=== PATIENT | male | born 1950 | race Hispanic/Latino ===

== ENCOUNTER 2019-11-15 08:57 | Inpatient (IN) | payer MEDICARE, OTHER ==
[~2019-11-15] VITALS: Ht 180.3 cm; Wt 99.8 kg
[2019-11-15] MEDS ORDERED: SODIUM CHLORIDE 0.9% 1000ML 1,000 ML IV STA (09:10)
--- NOTE | 2019-11-15 09:11 | NUR ---
sent to restroom for urine sample. pt heard vomiting in restroom.
--- OUTSIDE RECORDS SUMMARY | 2019-11-15 09:37 | XMS REPORT | Continuity of Care Document ---
Author Author [facility] Organization [facility] Address [facility] Benito Ramos [address] [place] [address] Phone Unavailable Care Team Providers Care Cashier Clerk Name Role Phone ESTEPHANIA CHAVEZ M.D. Attphys Unavailable Jose Chavez Attphys Binh Morejon M.D. Attphys Unavailable NEHEMIAS MOTA, STYLE ADVISOR Attphys Unavailable NEHEMIAS MOTA IV RN Attphys Unavailable Gonzalo Segundo Attphys Problems Condition Name Condition Details Condition Category Status Onset Date Resolution Date Last Treatment Date Treating Clinician Comments Source I10 - ESSENTIAL (PRIMARY) HYPERTENSI I25 I10 - ESSENTIAL (PRIMARY) HYPERTENSI I25 Active 03/18/2019 Steven Oliver Diagnosis Active 2019-03-18 00:01:00 2019-03-24 07:47:00 izabel Oliver Z12.11 Z12. 11 Active 02/29/[address] [facility] Diagnosis Active 2016-02-29 00:00:00 2016-04-07 06:22:00 Steven Oliver History of Muscle spasm History of Muscle spasm Problem Resolved [facility] History of polycythemia History of polycythemia Problem Resolved [facility] Hearing loss Hearing loss Problem Active [facility] Vertigo Vertigo Problem Active [facility] Elevated WBCs Elevated WBCs Problem Active [facility] Benign paroxysmal positional vertigo Benign paroxysmal posit ional vertigo Problem Active [facility] Gastroenteritis Gastroenteritis Problem Active [facility] Chronic otitis externa Chronic otitis externa Problem Active [facility] Acute bronchitis Acute bronchitis Problem Active [facility] Need for hepatitis C screening test Need for hepatitis C screeni ng test Problem Active [facility] Colon cancer screening Colon cancer screening Problem Active [facility] Influenza vaccine needed Influenza vaccine needed Problem Active [facility] Contact dermatitis Contact dermatitis Problem Active [facility] Increased urinary frequency Increased urinary frequency Problem Active [facility] Decreased renal function Decreased renal function Problem Active [facility] Encounter for Medicare annual wellness exam Encounter for Medicare annual wellness exam Problem Active [facility] Advance directive discussed with patient Advance direc tive discussed with patient Problem Active [facility] Allergic rhinitis Allergic rhinitis Problem Active [facility] BMI 31.0-31.9,adult BMI 31.0-31.9,adult Problem Active [facility] Colon polyps Colon polyps Problem Active [facility] Gastroesophageal reflux disease Gastroesophageal reflux disease Pro blem Active [facility] Generalized anxiety disorder Generalized anxiety disorder Problem Active [facility] Hypercholesterolemia Hypercholesterolemia Problem Active [facility] Osteoarthritis Osteoarthritis Problem Active [facility] Iliac artery stenosis, left Iliac artery stenosis, left Problem Active [facility] Hypertension Hypertension Problem Active [facility] CAD (coronary artery disease) CAD (coronary artery disease) Problem Active [facility] Polycythemia Polycythemia Problem Active [facility] S/P CABG x 3 S/P CABG x 3 Problem Active [facility] Anxiety (finding) Anxi ety (finding) Resolved Problem 03/27/2019 [facility] KAREN Trejo Problem Resolved 2019-03-27 00:03:00 Steven Oliver Gastroesophageal reflux disease (disorder) Gastroesophageal reflux disease (disorder) Resolved Problem 03/27/2019 [facility] KAREN Trejo Problem Resolved 2019-03-27 00:03:0 0 Steven Oliver Hypertensive disorder, systemic arterial (disorder) Hypertensive disorder, systemic arterial (disorder) Resolved Problem 03/27/2019 [facility] KAREN Trejo Problem Resolved 2019-03-27 00 :03:00 Steven Oliver Allergies, Adverse Reactions, Alerts Allergy Name Allergy Type Status Severity Reaction(s) Onset Date Inacti ve Date Treating Clinician Comments Source No Known Drug Allergies No Known Drug Allergies Active Steven Oliver No Known Medication Allergies No Known Medication Allergies Active Steven Oliver Family History Family Member Diagnosis Comments Start Date Stop Date Source Mother Family history of systemic lupus erythematosus [facility] Father Family history of renal failure [facility] Social History Social Habit Start Date Stop Date Quantity Comments Source Social History 2013-03-19 22:04:19 2013-03-19 22:04:19 Steven Oliver Smoking Status Start Date Stop Date Source Smokes tobacco daily (finding) [facility] Social History 2016-04-07 12:52:33 2016-04-07 12:52:33 Steven Oliver Medications Ordered Medication Name Filled Medication Name Start Date Stop Da te Current Medication? Ordering Clinician Indication Dosage Frequency Signature (SIG) Comments Components Source Loratadine 10 MG Oral Tablet Loratadine 10 MG Oral Tablet 2019-08-11 00:00:00 Yes ESTEPHANIA CHAVEZ M.D. TAKE 1 TABLET BY MOUTH ONCE D AILY, FOR [address] [facility] Losartan Potassium 50 MG Oral Tablet Losartan Potassium 50 M G Oral Tablet 2019-03-07 00:00:00 Yes ESTEPHANIA CHAVEZ M.D. 1 Q D TAKE 1 TABLET BY MOUTH EVERY DAY [facility] hydroCHLOROthiazide 12.5 MG Oral Tablet hydroCHLOROthiazide 12.5 MG Oral Tablet 2019-03-07 00:00:00 Yes ESTEPHANIA CHAVEZ M.D. 1 QD TAKE [address] [facility] Clopidogrel Bisulfate 75 MG Oral Tablet Clopidogrel Bisulfat e 75 MG Oral Tablet 2018-06-24 00:00:00 Yes ESTEPHANIA CHAVEZ M.D. 1 Q D TAKE 1 TABLET BY MOUTH EVERY DAY [facility] Atorvastatin Calcium 40 MG Oral Tablet Atorvastatin Calcium 40 MG Oral Tablet 2018-03-15 00:00:00 Yes ESTEPHANIA CHAVEZ M.D. TAKE 1 TABLET BY MOUTH AT BEDTIME [facility] Metoprolol Tartrate 50 MG Oral Tablet Metoprolol Tartrate 50 MG Oral Tablet 2017-12-27 00:00:00 Yes ESTEPHANIA CHAVEZ M.D. Q 0.5D TAKE 1 TABLET BY MOUTH TWICE DAILY [facility] Omeprazole 40 MG Oral Capsule Delayed Release Omeprazo le 40 MG Oral Capsule Delayed Release 2017-05-31 00:00:00 Yes ESTEPHANIA CHAVEZ M.D. TAKE 1 CAPSULE BY MOUTH EVERY DAY [facility] Sodium Chloride 0.154 MEQ/ML Injectable Solution 2016-04-07 12:5 5:00 No 1,000 mL, Rate: 25 ml/hr, In fuse over: 40 hr, Route: IV, Dosing Weight 92.727 kg, Total Volume: 1,000, Start date: 04/07/16 6:55:00 MAINFRAME PROGRAMMER, Duration: 1 day, Stop date: 04/08/16 6:54:00 MAINFRAME PROGRAMMER [facility] val[facility] 160 mg oral tablet 2016-04-06 17:30:00 Yes 160 mg = 1 tab, PO, Daily, 0 Refill(s) Steven Benito metoprolol tartrate 50 mg oral tablet 2016-04-06 17:30:00 Y es 50 mg = 1 tab, PO, BID, 0 Refill(s) Steven lorenz pantoprazole 40 mg oral enteric coated tablet 2016-04-06 17:30:0 0 Yes 40 mg = 1 tab, PO, Daily, 0 Refill(s) Steven Oliver clopidogrel 75 MG Oral Tablet [Plavix] 2016-04-06 17:30:00 Yes 75 mg = 1 tab, PO, Daily, 0 Refill(s) Terrell Oliver atorvastatin 80 mg oral tablet 2016-04-06 17:30:00 Yes 80 mg = 1 tab, PO, Daily, 0 Refill(s) Steven thomas Aspirin 2016-04-06 17:29:00 Yes 0 Refill(s) Steven Oliver No Reported Medications 2013-03-19 22:04:19 Yes (Active) Steven Oliver Aspirin 81 MG TABS Aspirin 81 MG TABS Yes 1 QD TA KE 1 TABLET DAILY. [facility] Tylenol CAPS Tylenol CAPS Yes USE NEEDED [facility] Immunizations Ordered Immunization Name Filled Immunization Name Date Status Comments Source Fluzone High-Dose 0.5 ML Intramuscular Suspension Prefilled Syringe 2019-03-07 11:14:00 Completed [facility] Fluzone Quadrivalent 0.5 ML Intramuscular Suspension Prefill ed Syringe 2017-12-27 14:30:00 Completed [facility] Fluzone High-Dose 0.5 ML Intramuscular Suspension Prefilled Syringe 2017-02-15 14:47:00 Completed [facility] Pneumovax 23 25 MCG/0.5ML Injection Injectable 2017-02 14:47:00 Completed [facility] Prevnar 13 Intramuscular Suspension 2016-02-15 09:25:00 Co mpleted [facility] Fluzone INJ 2016-01-24 16:30:00 Completed [facility] Tdap 2012-08-01 00:00:00 Completed [facility] Vital Signs Vital Name Observation Time Observation Value Comments Source Systolic blood pressure 2019-06-02 11:54:00 121 mm[Hg] [facility] Diastolic blood pressure 2019-06-02 11:54:00 78 mm[Hg] [facility] Weight 2019-06-02 11:54:00 219 [lb_av] [facility] Body mass index (BMI) [Ratio] 2019-06-02 11:54:00 30.54 kg/m2 [facility] Heart Rate 2019-06-02 11:54:00 70 /min [facility] BP Systolic 2019-03-07 10:21:00 137 mm[Hg] Location: [place]; [place] on: Sitting [facility] BP Diastolic 2019-03-07 10:21:00 79 mm[Hg] Location: [place]; [place] on: Sitting [facility] Heart Rate 2019-03-07 10:21:00 72 /min [facility] BP Systolic 2019-03-07 10:15:00 153 mm[Hg] Location: [place]; [place] on: Sitting [facility] BP Diastolic 2019-03-07 10:15:00 78 mm[Hg] Location: [place]; [place] on: Sitting [facility] Heart Rate 2019-03-07 10:15:00 73 /min [facility] Height 2019-03-07 10:15:00 71 [in_us] [facility] Weight 2019-03-07 10:15:00 225 [lb_av] [facility] Body Mass Index Calculated 2019-03-07 10:15:00 31.38 kg/m2 [facility] Temperature 2019-03-07 10:15:00 98.3 [degF] Method: Oral [facility] Respiration Rate 2019-03-07 10:15:00 16 /min [facility] BP Systolic 2018-10-16 14:34:00 133 mm[Hg] Location: [place]; [place] on: Sitting [facility] BP Diastolic 2018-10-16 14:34:00 79 mm[Hg] Location: [place]; [place] on: Sitting [facility] Height 2018-10-16 14:34:00 71 [in_us] [facility] Weight 2018-10-16 14:34:00 223 [lb_av] [facility] Body Mass Index Calculated 2018-10-16 14:34:00 31.1 kg/m2 [facility] Temperature 2018-10-16 14:34:00 97.5 [degF] Method: Oral [facility] Heart Rate 2018-10-16 14:34:00 76 /min [facility] Respiration Rate 2018-10-16 14:34:00 16 /min [facility] Respitory Rate 2016-04-07 14:15:00 [facility] [place] Systolic (mm Hg) 2016-04-07 14:15:00 Maximino rial [place] Diastolic (mm Hg) 2016-04-07 14:15:00 Mem orial [place] Systolic (mm Hg) 2016-04-07 14:00:00 Maximino rial [place] Diastolic (mm Hg) 2016-04-07 14:00:00 [facility] [place] Respitory Rate 2016-04-07 14:00:00 [facility] [place] Systolic (mm Hg) 2016-04-07 13:47:00 Maximino rial [place] Diastolic (mm Hg) 2016-04-07 13:47:00 [facility] [place] Respitory Rate 2016-04-07 13:47:00 [facility] Height 2016-04-06 17:25:00 180.34 cm [facility] BMI Calculated 2016-04-06 17:25:00 [facility] [place] Weight 2016-04-06 17:25:00 [facility] Procedures Procedure Date / Time Performed Performing Clinician Sour e [QL] CBC (INCLUDES DIFF/PLT) 2019-03-07 00:00:00 [facility] [[facility]] CMP W/EGFR 2019-03-07 00:00:00 [facility] [[facility]] HEMOGLOBIN A1c 2019-03-07 00:00:00 [facility] [[facility]] LIPID PANEL 2019-03-07 00:00:00 [facility] [[facility]] TSH, 3RD GENERATION 2019-03-07 00:00:00 [facility] Abdomen Aortic Aneurysm (AAA) [id number] 2019-03-07 00:00:00 [facility] History of Coronary Artery Triple Bypass Graft [facility] CABG - Coronary artery bypass graft [facility] [place] Encounters Start Date/Time End Date/Time Encounter Type Admission Type Attendi [facility] Care Department Encounter ID Source 2019-06-02 11:30:00 2019-06-02 11:30:00 Appointment; ESTEPHANIA CHAVEZ M.D. WALTON, HAROLD, M.D. [facility] [id number] [facility] 2019-03-24 07:36:00 2019-03-24 23:59:00 Outpatient Caio Chavez MHOIB MHOIB [id number] 2019-03-07 10:30:00 2019-03-07 10:30:00 Appointment; ESTEPHANIA CHAVEZ M.D. WALTON, HAROLD, M.D. [facility] [id number] [facility] 2018-10-16 14:15:00 2018-10-16 14:15:00 Appointment; ESTEPHANIA CHAVEZ M.D. WALTON, HAROLD, M.D. [facility] [id number] [facility] 2018-05-16 13:45:00 2018-05-16 13:45:00 Appointment; ESTEPHANIA CHAVEZ M.D. WALTON, HAROLD, M.D. [facility] [id number] [facility] 2018-03-29 11:45:00 2018-03-29 11:45:00 Appointment; Binh Morejon M.D. Quesada, Jorge, M.D. [facility] [id number] [facility] 2018-02-27 10:00:00 2018-02-27 10:00:00 Appointment; KIAN MOTA APRN HOANG, CHRISTINA, APRN [facility] [id number] [facility] 2018-02-27 10:00:00 2018-02-27 10:00:00 Appointment; KIAN MOTA APRN HOANG, CHRISTINA, APRN [facility] [id number] [facility] 2018-01-29 10:30:00 2018-01-29 10:30:00 Appointment; ESTEPHANIA CHAVEZ M.D. WALTON, HAROLD, M.D. [facility] [id number] [facility] 2017-12-27 13:30:00 2017-12-27 13:30:00 Appointment; ESTEPHANIA CHAVEZ M.D. WALTON, HAROLD, M.D. [facility] [id number] [facility] 2017-10-02 10:30:00 2017-10-02 10:30:00 Appointment; ESTEPHANIA CHAVEZ M.D. WALTON, HAROLD, M.D. [facility] UTP [id number] [facility] 2017-05-31 11:30:00 2017-05-31 11:30:00 Appointment; ESTEPHANIA CHAVEZ M.D. WALTON, HAROLD, M.D. [facility] UTP [id number] [facility] 2017-05-31 10:45:00 2017-05-31 10:45:00 Appointment; ESTEPHANIA CHAVEZ M.D. WALTON, HAROLD, M.D. [facility] UTP [id number] [facility] 2017-03-01 11:15:00 2017-03-01 11:15:00 Appointment; ESTEPHANIA CHAVEZ M.D. WALTON, HAROLD, M.D. [facility] UTP [id number] [facility] 2017-02-15 13:00:00 2017-02-15 13:00:00 Appointment; KIAN MOTA NP HOANG, CHRISTINA, NP [facility] UTP [id number] [facility] 2016-04-07 06:15:00 2016-04-07 08:32:00 Outpatient Uriel Segundo [place] [id number] 2013-03-19 16:04:19 2013-03-19 16:04:19 Outpatient [place] IE [id number] Results Test Description Test Time Test Comments Results Result Comments Source US Aorta [id number] 2019-03-24 08:00:00 EXAM: US AOR TADATE: 03/24/2019 8:02 CSTINDICATION: - i10 hypertension, i25.10 CAD. History of cardiac bypass. 40 yearhistory of smoking with smoking cessation 5 years ago.ADDITIONAL INFORMATION: None.COMPARISON: None.TECHNIQUE: Multiplanar grayscale, color Doppler and spectral Doppler ultrasoundof the aorta.FINDINGS:Abdominal aorta: Normal arterial waveformsSuprarenal aorta: 2.5 x 2.1 cm.Juxtarenal aorta: 2.1 x 2.1 cm.Infrarenal aorta: 2.1 x 2.1 cm.Common iliac arteries:Right common iliac artery: 1.4 x 1.1 cm. Atherosclerotic plaque.Left common iliac artery: 1.3 x 1.1 cm. Monophasic waveforms with elevated peaksystolic velocity of 400 cm/s are seen in the proximal left common iliac arterywith atherosclerotic plaque present.Inferior vena cava: Normal.Retroperitoneal/periaortic region: Normal.IMPRESSION:1. No abdominal aortic aneurysm is detected.2. Suspected hemodynamically significant stenosis of greater than 50% in theproximal left common iliac artery as manifested by elevated peak systolicvelocity and monophasic waveforms. CTA of the pelvis with bilateral lowerextremity runoffs is recommended for further evaluation and characterization.--Read by: Robb Walsh MDDictated Date/time: 03/24/19 08:52Electronically Signed by: Robb Walsh MD 03/24/2007:55FINAL REPORT [facility] [[facility]] LIPID PANEL 2019-03-08 08:06:00 Test Item CHOLESTEROL, TOTAL; Normal (test code = 2093-3) 111 mg/dl <200 N HDL CHOLESTEROL; Below Low Threshold (test code = 2085-9) 37 mg/dl >40 TRIGLYCERIDES; Normal (test code = 2571-8) 149 mg/dl <150 N LDL-CHOLESTEROL; Normal (test code = 79456-3) 51 {MG/DL GREGG} N Reference range: <100 Desirable range <100 mg/dL for primary prevention; <70 mg/dL for patients with CHD or diabetic patients with > or = 2 CHD risk factors. LDL-C is now calculated using the Avila-Kj calculation, which is a validated novel method providing better accuracy than the Friedewald equation in the estimation of LDL-C. Avila SS et al. DIANELYS. 2013;310(19): 4313-5514 (http ://education.[employer].Datactics/faq/CBT058) CHOL/HDLC RATIO (test code = CHOL/HDLC RATIO) 3.0 {CALC} <5.0 N NON HDL CHOLESTEROL (test code = NON HDL CHOLESTEROL) 74 {MG/DL CA L} <130 N For patients with diabetes plus 1 major ASCVD risk factor, treating to a non-HDL-C goal of <100 mg/dL (LDL-C of <70 mg/dL) is considered a therapeutic option. [facility]] CMP [id number] 08:06:00* Test Item Value Reference Range Interpretation Comments GLUCOSE; Normal (test code = 1547-9) 98 mg/dl 65-99 N Fasting reference interval UREA NITROGEN (BUN) (test code = UREA NITROGEN (BUN)) 21 mg/dl 7-25 N CREATININE (test code = CREATININE) 1.25 mg/dl 0.70-1.25 N For patients >49 years of age, the reference limitfor Creatinine is approximately 13% higher for peopleidentified as -[place]. eGFR NON- (test code = eGFR NON-JASMIN N MARSHALLESE) 59 {ML/MIN/1.7} > OR = 60 eGFR (test code = eGFR ) 68 {ML/MIN/1.7} > OR = 60 N BUN/CREATININE RATIO (test code = BUN/CREATININE RATIO) NOT APPLICA BLE 6-22 SODIUM (test code = SODIUM) 141 mmol/L 135-146 N POTASSIUM (test code = POTASSIUM) 4.4 mmol/L 3.5-5.3 N CHLORIDE (test code = CHLORIDE) 104 mmol/L 98-110 N CARBON DIOXIDE (test code = CARBON DIOXIDE) 27 mmol/L 20-32 N CALCIUM (test code = CALCIUM) 9.9 mg/dl 8.6-10.3 N PROTEIN, TOTAL (test code = PROTEIN, TOTAL) 7.2 g/dl 6.1-8.1 N ALBUMIN (test code = ALBUMIN) 4.2 g/dl 3.6-5.1 N GLOBULIN (test code = GLOBULIN) 3.0 {G/DL CALC} 1.9-3.7 N ALBUMIN/GLOBULIN RATIO (test code = ALBUMIN/GLOBULIN RATIO) 1.4 {CALC} 1.0-2.5 N BILIRUBIN, TOTAL; Normal (test code = 13324-2) 1.2 mg/dl 0.2-1.2 N ALKALINE PHSPHATASE (test code = ALKALINE PHSPHATASE) 58 u/l 40-115 N AST; Normal (test code = 1916-6) 12 u/l 10-35 N ALT; Normal (test code = 1742-6) 15 u/l 9-46 N [facility]] CBC (INCLUDES DIFF/PLT)2019-03-08 08:06:00* Test Item Value Reference Range Interpretation Comments WHITE BLOOD CELL COUNT (test code = WHITE BLOOD CELL COUNT) 8.6 {Thousand/u} 3.8-10.8 N RED BLOOD CELL COUNT (test code = RED BLOOD CELL COUNT) 5.65 {Million/uL} 4.20-5.80 N HEMAGLOBIN; Above High Threshold (test code = 83091-6) 18.4 g/dl 13.2-17.1 HEMATOCRIT; Above High Threshold (test code = 4544-3) 51.8 % 38.5-50.0 MCV; Normal (test code = 787-2) 91.7 fL 80.0-100.0 N MCHC; Normal (test code = 45391-8) 35.5 g/dl 32.0-36.0 N RDW; Normal (test code = 788-0) 12.1 % 11.0-15.0 N PLATELET COUNT; Normal (test code = 777-3) 175 {Thousand/u} 140-400 N MPV; Normal (test code = 71192-9) 11.2 fL 7.5-12.5 N ABSOLUTE NEUTROPHILS (test code = ABSOLUTE NEUTROPHILS) 6330 {cells/uL} 1061-1994 N ABSOLUTE LYMPHOCYTES (test code = ABSOLUTE LYMPHOCYTES) 1350 {cells/uL} 850-3900 N ABSOLUTE MONOCYTES (test code = ABSOLUTE MONOCYTES) 679 {cells/uL} 200-950 N ABSOLUTE EOSINOPHILS (test code = ABSOLUTE EOSINOPHILS) 198 {cells/ uL} 15-500 N ABSOLUTE BASOPHILS (test code = ABSOLUTE BASOPHILS) 43 {cells/uL} 0 -200 N NEUTROPHILS (test code = NEUTROPHILS) 73.6 % N LYMPHOCYTES (test code = LYMPHOCYTES) 15.7 % N MONOCYTES; Normal (test code = 04543-5) 7.9 % N EOSINOPHILS; Normal (test code = 78566-4) 2.3 % N BASOPHILS; Normal (test code = 83329-6) 0.5 % N [facility]] TSH, 3RD [id number] 08:06:00* Test Item Value Reference Range Interpretation Comments TSH; Normal (test code = 04703-8) 0.84 {MIU/L} 0.40-4.[address] [facility]] HEMOGLOBIN [id number] 08:06:00* Test Item Value Reference Range Interpretation Comments HEMOGLOBIN A1c; Normal (test code = 4548-4) 5.6 {% of total} <5.7 N For the purpose of screening for the presence ofdiabetes: <5.7% Consistent with the absence of diabetes5.7-6.4% Consistent with increased risk for diabetes (prediabetes)> or =6.5% Consistent with diabetes This assay result is consistent with a decreased riskof diabetes. Currently, no consensus exists regarding use ofhemoglobin A1c for diagnosis of diabetes in children. According to [place] Diabetes Association (ADA)guidelines, hemoglobin A1c <7.0% represents optimalcontrol in non- diabetic patients. Differentmetrics may apply to specific patient populations. Standards of Medical Care in Diabetes(ADA). [facility]
--- OUTSIDE RECORDS SUMMARY | 2019-11-15 09:37 | XMS REPORT | Continuity of Care Document ---
Author Author ShipHawkKECIA Flanagan [employer] Address Unknown Phone Unavailable Care Team Providers Care Flare Man Name Role Phone [employer] Information Exchange Unavailable Un available Problems Problem Status Onset Date Classification Date Reported Comments Source I10 - ESSENTIAL (PRIMARY) HYPERTENSI I25 Active 03/18/2019 [facility] Z12.11 Active 02/29/2016 [facility] Anxiety (finding) Resolved Problem 03/27/2019 [facility], KAREN solorzano Gastroesophageal reflux disease (disorder) Resolved Problem 03/27/2019 [facility] CORAL Trejo Hypertensive disorder, systemic arterial (disorder) Resolved Problem 03/27/2019 [facility] KAREN Trejo Medications Medication Details Route Status Patient Instructions Ordering Provider Order Date Source Sodium Chloride 0.154 MEQ/ML Injectable Solution 1,000 mL, Rate: 25 ml/hr, Infuse over: 40 hr, Route: IV, Dosing Weight 92.727 kg, Total Volume: 1,000, Start date: 04/07/16 6:55:00 OUTSIDE MEDICAL SALES REPRESENTATIVE, Duration: 1 day, Stop date: 04/08/16 6:54:00 OUTSIDE MEDICAL SALES REPRESENTATIVE Inactive 04/07/2016 [facility] valsartan 160 mg oral tablet 1 60 mg = 1 tab, PO, Daily, 0 Refill(s) Active 04/06/2016 [facility] metoprolol tartrate 50 mg oral tablet 50 mg = 1 tab, PO, BID, 0 Refill(s) Active 04/06/2016 [facility] pantoprazole 40 mg oral enteric coated tablet 40 mg = 1 tab, PO, Daily, 0 Refill(s) Active 04/06/2016 [facility] clopidogrel 75 MG Oral Tablet [Plavix] 75 mg = 1 tab, PO, Daily, 0 Refill(s) Active 04/06/2016 [facility] atorvastatin 80 mg oral tablet 80 mg = 1 tab, PO, Daily, 0 Refill(s) Active 04/06/2016 [facility] Aspirin 0 Refill(s) Active 04/06/2016 [facility] No Reported Medications (Acti ve) Active [facility] Allergies, Adverse Reactions, Alerts Substance Category Reaction Severity Reaction type Status Date Reported Comments Source No Known Drug Allergies drug a llergy drug aller gy Active [facility] No Known Medication Allergies Assertion Drug aller gy OPID [place] Immunizations Immunization Date Given Site Status Last Updated Comments Source Tdap 08/01/2012 completed [facility] Results No Data Provided for This Section Pathology Reports No Data Provided for This Section Diagnostic Reports Report Value Date Source Aorta US EXAM: US AORTA DATE: 03/24/2019 8:02 OUTSIDE MEDICAL SALES REPRESENTATIVE INDICATION: - i10 hypertension, i25.10 CAD. History of cardiac bypass. 40 year history of smoking with smoking cessation 5 years ago. ADDITIONAL INFORMATION: None. COMPARISON: None. TECHNIQUE: Multiplanar grayscale, color Doppler and spectral Doppler ultrasound of the aorta. FINDINGS: Abdominal aorta: Normal arterial waveforms Suprarenal aorta: 2.5 x 2.1 cm. Juxtarenal aorta: 2.1 x 2.1 cm. Infrarenal aorta: 2.1 x 2.1 cm. Common iliac arteries: Right common iliac artery: 1.4 x 1.1 cm. Atherosclerotic plaque. Left common iliac artery: 1.3 x 1.1 cm. Monophasic waveforms with elevated peak systolic velocity of 400 cm/s are seen in the proximal left common iliac artery with atherosclerotic plaque present. Inferior vena cava: Normal. Retroperitoneal/periaortic region: Normal. IMPRESSION: 1. No abdominal aortic aneurysm is dete cted. 2. Suspected hemodynamically significan t stenosis of greater than 50% in the proximal left common iliac artery as manifested by elevated peak systolic velocity and monophasic waveforms. CTA of the pelvis with bilateral lower extremity runoffs is recommended for further evaluation and characterization. 03/24/2019 [facility] Consultation Notes No Data Provided for This Section Discharge Summaries No Data Provided for This Section History and Physicals No Data Provided for This Section Vital Signs Vital Sign Value Date Comments Source Respitory Rate 16 04/07/2016 [facility] Systolic (mm Hg) 154 04/07/2016 [facility] Diastolic (mm Hg) 83 04/07/2016 [facility] Systolic (mm Hg) 139 04/07/2016 [facility] Diastolic (mm Hg) 85 04/07/2016 [facility] Respitory Rate 16 04/07/2016 [facility] Systolic (mm Hg) 115 04/07/2016 [facility] Diastolic (mm Hg) 71 04/07/2016 [facility] Respitory Rate 16 04/07/2016 [facility] Height 180.34 cm 04/06/2016 [facility] BMI Calculated 28.51 04/06/2016 [facility] Weight 92.727 04/06/2016 [facility] Encounters Location Location Details Encounter Type Encounter Number Reason For Visit Attending Provider ADM Date DC Date Status Source AUDIT [id number] 03/19/2013 03/19/2013 [place] [facility] Bedded Outpatient [id number] Uriel Segundo 04/07/2016 04/07/2016 [facility] [place] [facility] Di[facility] Services [id number] 00 Jeremy Chavez 03/24/2019 03/25/2019 [facility] Procedures Procedure Code Date Perfomer Comments Source CABG - Coronary artery bypass graft [id number] [facility] Assessment and Plan No Data Provided for This Section Plan of Care No Data Provided for This Section Social History Social History Date Source Social History TypeResponse Smoking Status Former smoker; Concerns about tobacco use in household: No; Exposure to Tobacco Smoke None; Cigarette Smoking Last 365 Days No; Reg Smoking Cessation Counseling No entered on: 04/07/16 04/07/2016 [facility] Social History TypeResponse Smoking Status Former smoker; Concerns about tobacco use in household: No; Exposure to Tobacco Smoke None; Cigarette Smoking Last 365 Days No; Reg Smoking Cessation Counseling No 04/07/2016 [facility] Marital History - (V61.03); (Active) Current Smoker (305.1); (Active) No History of Alcohol Use (Denied) No History of Drug Use (Denied) Occupation: Retired (Active) 03/19/2013 [facility] Family History No Data Provided for This Section Advance Directives Order Name Results Value Date Source Advance Directives Advance Dir ectives No Advance Directives available. 03/19/2013 [facility] Functional Status No Data Provided for This Section
[2019-11-15] MEDS ORDERED: ONDANSETRON HCL INJ 2MG/ML 2ML 2 MG/ML VIAL IV NR (09:45)
[2019-11-15] MEDS ORDERED: MORPHINE SULFATE 2 MG/ML SYR 1ML IV NR (10:00)
[2019-11-15] MEDS ORDERED: PANTOPRAZOLE 40 MG 10ML VIAL IV NR (10:00)
[2019-11-15 10:03] LABS: BASOPHILS % 0.3 % (0.0-1.0); EOSINOPHILS % 0.2 % (0.0-6.0); HEMATOCRIT 53.4 % (38.2-49.6); HEMOGLOBIN 18.6 g/dL (14.0-18.0); LYMPHOCYTES # (AUTO) 1.8 (1.0-3.2); LYMPHOCYTES % 16.9 % (18.0-39.1); MEAN CORPUSCULAR HEMOGLOBIN 31.7 pg (28-32); MEAN CORPUSCULAR HGB CONC 34.8 g/dL (31-35); MEAN CORPUSCULAR VOLUME 91.1 fL (81-99); MONOCYTES # (AUTO) 0.5 (0.2-0.8); MONOCYTES % 5.1 % (4.4-11.3); NEUTROPHILS % 77.1 % (38.7-80.0); PLATELET COUNT 205 x10e3/uL (140-360); RED BLOOD COUNT 5.86 x10e6/uL (4.3-5.7); RED CELL DISTRIBUTION WIDTH 12.3 % (11.7-14.4)
[2019-11-15 10:11] LABS: BILIRUBIN,URINE SMALL (NEGATIVE); CLARITY,URINE CLEAR (CLEAR); COLOR,URINE YELLOW (YELLOW); KETONES,URINE NEGATIVE (NEGATIVE); LEUKOCYTE ESTERASE ,URINE NEGATIVE (NEGATIVE); NITRITE,URINE NEGATIVE (NEGATIVE); PROTEIN,URINE DIPSTICK NEGATIVE (NEGATIVE); URINE UROBILINOGEN 0.2 mg/dL (0.2 - 1)
[2019-11-15 10:17] LABS: ALBUMIN 4.6 g/dL (3.5-5.0); ALBUMIN/GLOBULIN RATIO 1.4 (0.8-2.0); ANION GAP 20.4 mmol/L (8-16); CALCIUM 9.8 mg/dL (8.4-10.2); CREATININE, SERUM 1.28 mg/dL (0.72-1.25); POTASSIUM 3.4 mmol/L (3.5-5.1)
[2019-11-15 10:22] LABS: PARTIAL THROMBOPLASTIN TIME 26.4 seconds (23.8-35.5)
[2019-11-15 10:23] LABS: CREATINE KINASE MB 0.6 ng/mL (0-5.0)
--- NOTE | 2019-11-15 11:06 | Diagnostic Imaging Report ---
EXAMINATION: CHEST SINGLE (PORTABLE) INDICATION: abd pain, n/v COMPARISON: None FINDINGS: AP view TUBES and LINES: None. . LUNGS/PLEURA: Lungs are well inflated. There are bilateral interstitial opacities, consistent with pulmonary edema. There are bibasilar linear atelectasis.. There is no pleural effusion or pneumothorax. HEART AND MEDIASTINUM: Cardiac size is mildly enlarged. BONES AND SOFT TISSUES: No acute osseous lesion. Midline sternotomy wires are seen. Soft tissues are unremarkable. UPPER ABDOMEN: No free air under the diaphragm. IMPRESSION: Cardiomegaly with mild pulmonary edema. Superimposed pneumonia could be considered appropriate clinical setting. Signed by: Kennedy Loredo MD on 11/15/2019 11:03 AM
[2019-11-15 11:12] LABS: BACTERIA,URINE FEW /HPF; EPITHELIAL CELLS,URINE FEW /LPF; RBC,URINE 0-5 /HPF (0-5); WBC,URINE (MAN) 0-5 /HPF (0-5)
[2019-11-15] MEDS ORDERED: IOPAMIDOL 370 MG/ML 200 ML INFUS..BTL INJ ONE (11:39)
[2019-11-15] MEDS ORDERED: SODIUM CHLORIDE 0.9% 50ML 50 ML ONE (11:39)
[2019-11-15 11:53] LABS: INR 0.93; PROTHROMBIN TIME 12.9 seconds (11.9-14.5)
--- NOTE | 2019-11-15 12:11 | Diagnostic Imaging Report ---
EXAM: CT Abdomen and Pelvis WITH contrast INDICATION: bradford/ruq abd pain, n/v COMPARISON: None. TECHNIQUE: Abdomen and pelvis were scanned utilizing a multidetector helical scanner from the lung base to the pubic symphysis after administration of IV contrast. Coronal and sagittal reformations were obtained. Dose modulation, iterative reconstruction, and/or weight based adjustment of the mA/kV was utilized to reduce the radiation dose to as low as reasonably achievable. Routine protocol was performed. Scan was performed when during portal venous phase. IV CONTRAST: 150 mL of Omnipaque 300 ORAL CONTRAST: Water COMPLICATIONS: None RADIATION DOSE: Total DLP: 818.67 mGy-cm Estimated effective dose: (DLP x 0.015 x size factor) mSv CTDIvol has been reviewed. It is below the limits set by the Radiation Protocol Committee (RPC). FINDINGS: LINES and TUBES: None. LOWER THORAX: There is bibasilar atelectasis. HEPATOBILIARY: The liver is diffuse hypodense compared to the spleen, consistent with diffuse hepatic diffuse hepatic steatosis. No focal hepatic lesions. No biliary ductal dilation. GALLBLADDER: There are stones in the gallbladder. SPLEEN: No splenomegaly. No focal splenic lesion. PANCREAS: There is fatty infiltration of the pancreas. No focal lesion or pancreatic ductal dilatation. ADRENALS: No adrenal nodules KIDNEYS/URETERS: Kidneys enhance symmetrically. No hydronephrosis. Multiple bilateral simple renal cysts are seen largest in the left upper pole measures 3.2 cm. There are additional bilateral subcentimeter cortical low-density lesions too small to characterize. No solid mass lesions. No stones. GI TRACT: No abnormal distention or evidence of bowel obstruction. Diffuse mild wall thickening of the colon likely infectious or inflammatory. PELVIC ORGANS/BLADDER: The bladder is unremarkable. LYMPH NODES: No lymphadenopathy. VESSELS: No aortic aneurysm or dissection. There is moderate atherosclerotic disease in the aorta and major arterial branches. PERITONEUM / RETROPERITONEUM: No free air or fluid. BONES: There are degenerative changes in the spine. SOFT TISSUES: There are small fat containing bilateral inguinal hernias. IMPRESSION: 1. Diffuse mild wall thickening of the colon likely infectious or inflammatory. 2. Cholelithiasis with no evidence of gross cystitis. 3. Hepatic steatosis with no focal lesion. Signed by: Kennedy Loredo MD on 11/15/2019 12:07 PM
[2019-11-15] MEDS ORDERED: MORPHINE SULFATE 2 MG/ML SYR 1ML IV PRN (12:30)
[2019-11-15] MEDS ORDERED: KCL 20MEQ/.9 SOD CHL 1,000 ML IV ONE (12:30)
[2019-11-15] MEDS ORDERED: METRONIDAZOLE 500MG/NS 100ML IV SCH ×2 (12:30→15:00)
[2019-11-15] MEDS ORDERED: PIPER-TAZ 3.375 GM / NS 50ML IV SCH ×3 (12:30→18:00)
--- OUTSIDE RECORDS SUMMARY | 2019-11-15 12:41 | XMS REPORT | Continuity of Care Document ---
Author Author [employer] Flanagan [employer] Address Unknown Phone Unavailable Care Team Providers Care Adjunct English Instructor Name Role Phone [employer] Information [employer] Unavailable Un available Problems Problem Status Onset Date Classification Date Reported Comments Source I10 - ESSENTIAL (PRIMARY) HYPERTENSI I25 Active 03/18/2019 [facility] Z12.11 Active 02/29/2016 [facility] Anxiety (finding) Resolved Problem 03/27/2019 [facility], KAREN solorzano Gastroesophageal reflux disease (disorder) Resolved Problem 03/27/2019 [facility] CORAL Trejo Hypertensive disorder, systemic arterial (disorder) Resolved Problem 03/27/2019 [facility] KAREN Trejo Medications Medication Details Route Status Patient Instructions Ordering Provider Order Date Source Sodium Chloride 0.154 MEQ/ML Injectable Solution 1,000 mL, Rate: 25 ml/hr, Infuse over: 40 hr, Route: IV, Dosing Weight 92.727 kg, Total Volume: 1,000, Start date: 04/07/16 6:55:00 CRYSTAL REPORT DEVELOPER, Duration: 1 day, Stop date: 04/08/16 6:54:00 CRYSTAL REPORT DEVELOPER Inactive 04/07/2016 [facility] valsartan 160 mg oral tablet 1 60 mg = 1 tab, PO, Daily, 0 Refill(s) Active 04/06/2016 [facility] metoprolol tartrate 50 mg oral tablet 50 mg = 1 tab, PO, BID, 0 Refill(s) Active 04/06/2016 [facility] pantoprazole 40 mg oral enteric coated tablet 40 mg = 1 tab, PO, Daily, 0 Refill(s) Active 04/06/2016 [facility] clopidogrel 75 MG Oral Tablet [Plavix] 75 mg = 1 tab, PO, Daily, 0 Refill(s) Active 04/06/2016 [facility] atorvastatin 80 mg oral tablet 80 mg = 1 tab, PO, Daily, 0 Refill(s) Active 04/06/2016 [facility] Aspirin 0 Refill(s) Active 04/06/2016 [facility] No Reported Medications (Acti ve) Active [facility] Allergies, Adverse Reactions, Alerts Substance Category Reaction Severity Reaction type Status Date Reported Comments Source No Known Drug Allergies drug a llergy drug aller gy Active [facility] No Known Medication Allergies Assertion Drug aller gy OPID [place] Immunizations Immunization Date Given Site Status Last Updated Comments Source Tdap 08/01/2012 completed [facility] Results No Data Provided for This Section Pathology Reports No Data Provided for This Section Diagnostic Reports Report Value Date Source Aorta US EXAM: US AORTA DATE: 03/24/2019 8:02 CRYSTAL REPORT DEVELOPER INDICATION: - i10 hypertension, i25.10 CAD. History [...] recommended for further evaluation and characterization. 03/24/2019 [facility] Consultation Notes No Data Provided for This [...] 04/07/2016 [facility] Diastolic (mm Hg) 71 04/07/2016 [facility] Respitory Rate 16 04/07/2016 [facility] Height 180.34 cm 04/06/2016 [facility] BMI Calculated 28.51 04/06/2016 [facility] Weight 92.727 04/06/2016 [facility] Encounters Location Location Details Encounter Type Encounter Number Reason For Visit Attending Provider ADM Date DC Date Status Source AUDIT [id number] 03/19/2013 03/19/2013 [place] [facility] Bedded Outpatient [id number] Uriel Segundo 04/07/2016 04/07/2016 [facility] [place] Outpt Diag Services [id number] 00 Jeremy Chavez 03/24/2019 03/25/2019 [facility] Procedures Procedure Code Date Perfomer Comments Source CABG - Coronary artery bypass graft [id number] [facility] Assessment and Plan No Data Provided for This Section Plan of Care No Data Provided for This Section Social History Social History Date Source Social History TypeResponse Smoking Status Former smoker; Concerns about tobacco use in household: No; Exposure to Tobacco Smoke None; Cigarette Smoking Last 365 Days No; Reg Smoking Cessation Counseling No entered on: 04/07/16 04/07/2016 [facility] Social History TypeResponse Smoking Status Former smoker; Concerns about tobacco use in household: No; Exposure to Tobacco Smoke None; Cigarette Smoking Last 365 Days No; Reg Smoking Cessation Counseling No 04/07/2016 [facility] Marital History - (V61.03); (Active) Current Smoker (305.1); (Active) No History of Alcohol Use (Denied) No History of Drug Use (Denied) Occupation: Retired (Active) 03/19/2013 [facility] Family History No Data Provided for This Section Advance Directives Order Name Results Value Date Source Advance Directives Advance Dir ectives No Advance Directives available. 03/19/2013 [facility] Functional Status No Data Provided for This Section
--- OUTSIDE RECORDS SUMMARY | 2019-11-15 12:41 | XMS REPORT | Continuity of Care Document ---
Author Author [facility] t Organization [facility] Address [facility] Benito Ramos [address] [place] [address] Phone Unavailable Care Team Providers Care Counselor At Law Name Role Phone Madeline NAVA Attphys Unavailable ESTEPHANIA CHAVEZ M.D. Attphys Unavailable Jose Chavez Attphys Binh Morejon M.D. Attphys Unavailable NEHEMIAS MOTA APRN Attphys Unavailable NEHEMIAS MOTA NP Attphys Unavailable Gonzalo Segundo Attphys Problems Condition Name Condition Details Condition Category Status Onset Date Resolution Date Last Treatment Date Treating Clinician Comments Source I10 - ESSENTIAL (PRIMARY) HYPERTENSI I25 I10 - ESSENTIAL (PRIMARY) HYPERTENSI I25 Active 03/18/2019 Steven Oliver Diagnosis Active 2019-03-18 00:01:00 2019-03-24 07:47:00 M izabel Duranann Z12.11 Z12. 11 Active 02/29/2016 [facility] Diagnosis Active 2016-02-29 00:00:00 2016-04-07 06:22:00 [facility] [place] History of Muscle spasm History of Muscle spasm Problem Resolved [facility] History of polycythemia History of polycythemia Problem Resolved [facility] Hearing loss Hearing loss Problem Active [facility] Vertigo Vertigo Problem Active [facility] Elevated WBCs Elevated WBCs Problem Active [facility] Benign paroxysmal positional vertigo Benign paroxysmal posit ional vertigo Problem Active [facility] Gastroenteritis Gastroenteritis Problem Active [facility] Chronic otitis externa Chronic otitis externa Problem Active [facility] Acute bronchitis Acute bronchitis Problem Active [facility] Need for hepatitis C screening test Need for hepatitis C screeni ng test Problem Active [facility] Colon cancer screening Colon cancer screening Problem Active [facility] Influenza vaccine needed Influenza vaccine needed Problem Active [facility] Contact dermatitis Contact dermatitis Problem Active [facility] Increased urinary frequency Increased urinary frequency Problem Active [facility] Decreased renal function Decreased renal function Problem Active [facility] Encounter for Medicare annual wellness exam Encounter for Medicare annual wellness exam Problem Active [facility] Advance directive discussed with patient Advance direc tive discussed with patient Problem Active [facility] Allergic rhinitis Allergic rhinitis Problem Active [facility] BMI 31.0-31.9,adult BMI 31.0-31.9,adult Problem Active [facility] Colon polyps Colon polyps Problem Active [facility] Gastroesophageal reflux disease Gastroesophageal reflux disease Pro blem Active [facility] Generalized anxiety disorder Generalized anxiety disorder Problem Active [facility] Hypercholesterolemia Hypercholesterolemia Problem Active [facility] Osteoarthritis Osteoarthritis Problem Active [facility] Iliac artery stenosis, left Iliac artery stenosis, left Problem Active [facility] Hypertension Hypertension Problem Active [facility] CAD (coronary artery disease) CAD (coronary artery disease) Problem Active [facility] Polycythemia Polycythemia Problem Active [facility] S/P CABG x 3 S/P CABG x 3 Problem Active [facility] Anxiety (finding) Anxi ety (finding) Resolved Problem 03/27/2019 [facility] KAREN Trejo Problem Resolved 2019-03-27 00:03:00 Steven Oliver Gastroesophageal reflux disease (disorder) Gastroesophageal reflux disease (disorder) Resolved Problem 03/27/2019 [facility] KAREN Trejo Problem Resolved 2019-03-27 00:03:0 0 Steven Oliver Hypertensive disorder, systemic arterial (disorder) Hypertensive disorder, systemic arterial (disorder) Resolved Problem 03/27/2019 [facility] KAREN Trejo Problem Resolved 2019-03-27 00 [...] Family history of systemic lupus erythematosus [facility] Father Family history of renal failure [facility] Social History Social Habit Start Date Stop Date Quantity Comments Source Social History 2013-03-19 22:04:19 2013-03-19 22:04:19 [facility] Smoking Status Start Date Stop Date Source Smokes tobacco daily (finding) [facility] Social History 2016-04-07 12:52:33 2016-04-07 12:52:33 [facility] Medications Ordered Medication Name Filled Medication Name Start Date Stop Da te Current Medication? Ordering Clinician Indication Dosage Frequency Signature (SIG) Comments Components Source Loratadine 10 MG Oral Tablet Loratadine 10 MG Oral Tablet 2019-08-11 00:00:00 Yes ESTEPHANIA CHAVEZ M.D. TAKE 1 TABLET BY MOUTH ONCE D AILY, FOR 14 DAYS [facility] Losartan Potassium 50 MG Oral Tablet Losartan Potassium 50 M G Oral Tablet 2019-03-07 00:00:00 Yes ESTEPHANIA CHAVEZ M.D. 1 Q D TAKE 1 TABLET BY MOUTH EVERY DAY [facility] hydroCHLOROthiazide 12.5 MG Oral Tablet hydroCHLOROthiazide 12.5 MG Oral Tablet 2019-03-07 00:00:00 Yes ESTEPHANIA CHAVEZ M.D. 1 QD TAKE 1 TABLET DAILY. [facility] Clopidogrel Bisulfate 75 MG Oral Tablet Clopidogrel Bisulfat e 75 MG Oral Tablet 2018-06-24 00:00:00 Yes ESTEPHANIA CHAVEZ M.D. 1 Q D TAKE 1 TABLET BY MOUTH EVERY DAY [facility] Atorvastatin Calcium 40 MG Oral Tablet Atorvastatin Calcium 40 MG Oral Tablet 2018-03-15 00:00:00 Yes ESTEPHANIA CHAVEZ M.D. TAKE 1 TABLET BY MOUTH AT BEDTIME [facility] Metoprolol Tartrate 50 MG Oral Tablet Metoprolol Tartrate 50 MG Oral Tablet 2017-12-27 00:00:00 Yes ESTEPHANIA CHAVEZ M.D. Q 0.5D TAKE 1 TABLET BY MOUTH TWICE DAILY [facility] Omeprazole 40 MG Oral Capsule Delayed Release Omeprazo le 40 MG Oral Capsule Delayed Release 2017-05-31 00:00:00 Yes ESTEPHANIA CHAVEZ M.D. TAKE 1 CAPSULE BY MOUTH EVERY DAY [facility] Sodium Chloride 0.154 MEQ/ML Injectable Solution 2016-04-07 12:5 5:00 No 1,000 mL, Rate: 25 ml/hr, In fuse over: 40 hr, Route: IV, Dosing Weight 92.727 kg, Total Volume: 1,000, Start date: 04/07/16 6:55:00 APARTMENT MANAGER, Duration: 1 day, Stop date: 04/08/16 6:54:00 APARTMENT MANAGER Steven moreno valsartan 160 mg oral tablet 2016-04-06 17:30:00 Yes 160 mg = 1 tab, PO, Daily, 0 Refill(s) Steven Oliver metoprolol tartrate 50 mg oral tablet 2016-04-06 17:30:00 Y es 50 mg = 1 tab, PO, BID, 0 Refill(s) Steven lorenz pantoprazole 40 mg oral enteric coated tablet 2016-04-06 17:30:0 0 Yes 40 mg = 1 tab, PO, Daily, 0 Refill(s) Steven [place] clopidogrel 75 MG Oral Tablet [Plavix] 2016-04-06 17:30:00 Yes 75 mg = 1 tab, PO, Daily, 0 Refill(s) Terrell Oliver atorvastatin 80 mg oral tablet 2016-04-06 17:30:00 Yes 80 mg = 1 tab, PO, Daily, 0 Refill(s) Steven thomas Aspirin 2016-04-06 17:29:00 Yes 0 Refill(s) Steven Oliver No Reported Medications 2013-03-19 22:04:19 Yes (Active) Steven [place] Aspirin 81 MG TABS Aspirin 81 MG TABS Yes 1 QD TA KE 1 TABLET DAILY. [facility] Tylenol CAPS Tylenol CAPS Yes USE NEEDED [facility] Immunizations Ordered Immunization Name Filled Immunization Name Date Status Comments Source Fluzone High-Dose 0.5 ML Intramuscular Suspension Prefilled Syringe 2019-03-07 11:14:00 Completed [facility] Fluzone Quadrivalent 0.5 ML Intramuscular Suspension Prefill ed Syringe 2017-12-27 14:30:00 Completed [facility] Fluzone High-Dose 0.5 ML Intramuscular Suspension Prefilled Syringe 2017-02-15 14:47:00 Completed [facility] Pneumovax 23 25 MCG/0.5ML Injection Injectable 2017-02 14:47:00 Completed [facility] Prevnar 13 Intramuscular Suspension 2016-02-15 09:25:00 Co mpleted [facility] Fluzone INJ 2016-01-24 16:30:00 Completed [facility] Tdap 2012-08-01 00:00:00 [facility] Vital Signs Vital Name Observation Time Observation Value Comments Source Systolic blood pressure 2019-06-02 11:54:00 121 mm[Hg] [facility] Diastolic blood pressure 2019-06-02 11:54:00 78 mm[Hg] [facility] Weight 2019-06-02 11:54:00 219 [lb_av] [facility] Body mass index (BMI) [Ratio] 2019-06-02 11:54:00 30.54 kg/m2 [facility] Heart Rate 2019-06-02 11:54:00 70 /min [facility] BP Systolic 2019-03-07 10:21:00 137 mm[Hg] Location: LUE; Positi on: Sitting [facility] BP Diastolic 2019-03-07 10:21:00 79 mm[Hg] Location: LUE; Positi on: Sitting [facility] Heart Rate 2019-03-07 10:21:00 72 /min [facility] BP Systolic 2019-03-07 10:15:00 153 mm[Hg] Location: LUE; Positi on: Sitting [facility] BP Diastolic 2019-03-07 10:15:00 78 mm[Hg] Location: JENNIFER; Positi on: Sitting [facility] Heart Rate 2019-03-07 10:15:00 73 /min [facility] Height 2019-03-07 10:15:00 71 [in_us] [facility] Weight 2019-03-07 10:15:00 225 [lb_av] [facility] Body Mass Index Calculated 2019-03-07 10:15:00 31.38 kg/m2 [facility] Temperature 2019-03-07 10:15:00 98.3 [degF] Method: Oral [facility] Respiration Rate 2019-03-07 10:15:00 16 /min [facility] BP Systolic 2018-10-16 14:34:00 133 mm[Hg] Location: LUE; Positi on: Sitting [facility] BP Diastolic 2018-10-16 14:34:00 79 mm[Hg] Location: TYRONEE; Positi on: Sitting [facility] Height 2018-10-16 14:34:00 71 [in_us] [facility] Weight 2018-10-16 14:34:00 223 [lb_av] [facility] Body Mass Index Calculated 2018-10-16 14:34:00 31.1 kg/m2 [facility] Temperature 2018-10-16 14:34:00 97.5 [degF] Method: Oral [facility] Heart Rate 2018-10-16 14:34:00 76 /min [facility] Respiration Rate 2018-10-16 14:34:00 16 /min [facility] Respitory Rate 2016-04-07 14:15:00 Memori al [place] Systolic (mm Hg) 2016-04-07 14:15:00 Maximino rial [place] Diastolic (mm Hg) 2016-04-07 14:15:00 Mem orial [place] Systolic (mm Hg) 2016-04-07 14:00:00 Maximino rial [place] Diastolic (mm Hg) 2016-04-07 14:00:00 Mem orial [place] Respitory Rate 2016-04-07 14:00:00 Memori al [place] Systolic (mm Hg) 2016-04-07 13:47:00 Maximino rial [place] Diastolic (mm Hg) 2016-04-07 13:47:00 Mem orial [place] Respitory Rate 2016-04-07 13:47:00 Memori al [place] Height 2016-04-06 17:25:00 180.34 cm [facility] [place] BMI Calculated 2016-04-06 17:25:00 Memori al [place] Weight 2016-04-06 [facility]:25[facility] Procedure Date / Time Performed Performing Clinician Sour e [QL] CBC (INCLUDES DIFF/PLT) 2019-03-07 00:00:00 [facility]] CMP W/EGFR 2019-03-07 00:00:00 [facility]] HEMOGLOBIN A1c 2019-03-07 00:00:00 [facility]] LIPID PANEL 2019-03-07 00:00:00 [facility]] TSH, 3RD GENERATION 2019-03-07 00:00:00 [facility] Abdomen Aortic Aneurysm (AAA) [id number] 2019-03-07 00:00:00 [facility] History of Coronary Artery Triple Bypass Graft [facility] CABG - Coronary artery bypass graft [facility] Encounters Start Date/Time End Date/Time Encounter Type Admission Type [facility] Facility Care Department Encounter ID Source 2019-06-02 11:30:00 2019-06-02 11:30:00 Appointment; ESTEPHANIA CHAVEZ M.D. WALTON, HAROLD, M.D. [facility] [id number] [facility] 2019-03-24 07:36:00 2019-03-24 23:59:00 Outpatient Caio Chavez MHOIB MHOIB [id number] 2019-03-07 10:30:00 2019-03-07 10:30:00 Appointment; ESTEPHANIA CHAVEZ M.D. WALTON, HAROLD, M.D. [facility] [id number] [facility] 2018-10-16 14:15:00 2018-10-16 14:15:00 Appointment; ESTEPHANIA CHAVEZ M.D. WALTON, HAROLD, M.D. [facility] [id number] [facility] 2018-05-16 13:45:00 2018-05-16 13:45:00 Appointment; ESTEPHANIA CHAVEZ M.D. WALTON, HAROLD, M.D. [facility] [id number] [facility] 2018-03-29 11:45:00 2018-03-29 11:45:00 Appointment; Binh Morejon M.D. Quesada, Jorge, M.D. [facility] [id number] [facility] 2018-02-27 10:00:00 2018-02-27 10:00:00 Appointment; KIAN MOTA APRN HOANG, CHRISTINA, APRN UTP UTP [id number] [facility] 2018-02-27 10:00:00 2018-02-27 10:00:00 Appointment; KIAN MOTA APRN HOANG, CHRISTINA, APRN UTP UTP [id number] [facility] 2018-01-29 10:30:00 2018-01-29 10:30:00 Appointment; ESTEPHANIA CHAVEZ M.D. WALTON, HAROLD, M.D. UTP UTP [id number] [facility] 2017-12-27 13:30:00 2017-12-27 13:30:00 Appointment; CHAVEZ, Bibi BEST HAROLD, M.D. [facility] UTP [id number] [facility] 2017-10-02 10:30:00 2017-10-02 10:30:00 Appointment; ESTEPHANIA CHAVEZ M.D. WALTON, HAROLD, M.D. UTP UTP [id number] [facility] 2017-05-31 11:30:00 2017-05-31 11:30:00 Appointment; ESTEPHANIA CHAVEZ M.D. WALTON, HAROLD, M.D. UTP UTP [id number] [facility] 2017-05-31 10:45:00 2017-05-31 10:45:00 Appointment; ESTEPHANIA CHAVEZ M.D. WALTON, HAROLD, M.D. UTP UTP [id number] [facility] 2017-03-01 11:15:00 2017-03-01 11:15:00 Appointment; ESTEPHANIA CHAVEZ M.D. WALTON, HAROLD, M.D. [facility] UTP [id number] [facility] 2017-02-15 13:00:00 2017-02-15 13:00:00 Appointment; KIAN MOTA NP HOANG, CHRISTINA, NP UTP UTP [id number] [facility] 2016-04-07 06:15:00 2016-04-07 08:32:00 Outpatient Uriel Segundo MHSE MHSE [id number] 2013-03-19 16:04:19 2013-03-19 16:04:19 Outpatient MHIE MHIE [id number] Results Test Description Test Time Test Comments Results Result Comments Source CT ABDOMEN/PELVIS W 2019-11-15 11:58:00 [place] [address] Patient Name: KECIA GODFREY MR #: [id number] : 1950 Age/Sex: 69/M Req #: [id number] Adm Physician: Ordered by: ARAM NAVA MD Report #: [id number] Location: ER Room/Bed: Procedure: [id number] CT/CT ABDOMEN/PELVIS W Exam Date: 11/15/19 Exam Time: 1055 REPORT STATUS: Signed EXAM: CT Abdomen and Pelvis WITH contrast INDICATION: bradford/ruq abd pain, n/v COMPARISON: None. TECHNIQUE: Abdomen and pelvis were scanned utilizing a multidetector helical scanner from the lung base to the pubic symphysis after administration of IV contrast. Coronal and sagittal reformations were obtained. Dose modulation, iterative reconstruction, and/or weight based adjustment of the mA/kV was utilized to reduce the radiation dose to as low as reasonably achievable. Routine protocol was performed. Scan was performed when during portal venous phase. IV CONTRAST: 150 mL of Omnipaque 300 ORAL CONTRAST: Water COMPLICATIONS: None RADIATION DOSE: Total DLP: 818.67 mGy-cm Estimated effective dose: (DLP x 0.015 x size factor) mSv CTDIvol has been reviewed. It is below the limits set by the [facility] Protocol Committee (RPC). FINDINGS: LINES and TUBES: None. LOWER THORAX: There is bibasilar atelectasis. HEPATOBILIARY: The liver is diffuse hypodense compared to the spleen, consistent with diffuse hepatic diffuse hepatic steatosis. No focal hepatic lesions. No biliary ductal dilation. GALLBLADDER: There are stones in the gallbladder. SPLEEN: No splenomegaly. No focal splenic lesion. PANCREAS: There is fatty infiltration of the pancreas. No focal lesion or pancreatic ductal dilatation. ADRENALS: No adrenal nodules KIDNEYS/URETERS: Kidneys enhance symmetrically. No hydronephrosis. Multiple bilateral simple renal cysts are seen largest in the left upper pole measures 3.2 cm. There are additional bilateral subcentimeter cortical low-density lesions too small to characterize. No solid mass lesions. No stones. GI TRACT: No abnormal distention or evidence of bowel obstruction. Diffuse mild wall thickening of the colon likely infectious or inflammatory. PELVIC ORGANS/BLADDER: The bladder is unremarkable. LYMPH NODES: No lymphadenopathy. VESSELS: No aortic aneurysm or dissection. There is moderate atherosclerotic disease in the aorta and major arterial branches. PERITONEUM / RETROPERITONEUM: No free air or fluid. BONES: There are degenerative changes in the spine. SOFT TISSUES: There are small fat containing bilateral inguinal hernias. IMPRESSION: 1. Diffuse mild wall thickening of the colon likely infectious or inflammatory. 2. Cholelithiasis with no evidence of gross cystitis. 3. Hepatic steatosis with no focal lesion. Signed by: Kennedy Brennan MD on 11/15/2019 12:07 PM Dictated By: KENNEDY BRENNAN MD 06 Transcribed By: NGOZI on 11/15/191206 COPY TO: ARAM NAVA MD CHEST SINGLE (PORTABLE) 2019-11-15 10:09:00 [place] [address] Patient Name: KECIA GODFREY MR #: [id number] : 1950 Age/Sex: 69/M Req #: [id number] Adm Physician: Ordered by: ARAM NAVA MD Report #: [id number] Location: ER Room/Bed: Procedure: [id number] DX/CHEST SINGLE (PORTABLE) Exam Date: 11/15/19 Exam Time: 939 REPORT STATUS: Signed EXAMINATION: CHEST SINGLE (PORTABLE) INDICATION: abd pain, n/v COMPARISON: None FINDINGS: AP view TUBES and LINES: None. . LUNGS/PLEURA: Lungs are well inflated. There are bilateral interstitial opacities, consistent with pulmonary edema. There are bibasilar linear atelectasis.. There is no pleural effusion or pneumothorax. HEART AND MEDIASTINUM: Cardiac size is mildly enlarged. BONES AND SOFT TISSUES: No acute osseous lesion. Midline sternotomy wires are seen. Soft tissues are unremarkable. UPPER ABDOMEN: No free air under the diaphragm. IMPRESSION: Cardiomegaly with mild pulmonary edema. Superimposed pneumonia could be considered appropriate clinical setting. Signed by: Kennedy Brennan MD on 11/15/2019 11:03 AM Dictated By: KENNEDY BRENNAN MD 110 Transcribed By: NGOZI on 11/15/19 110 COPY TO: ARAM NAVA MD [place] [id number] 2019-03-24 08:00:00 EXAM: US AOR TADATE: 03/24/2019 [...] Signed by: Robb Walsh MD 03/24/2007:55FINAL REPORT [facility] [[facility]] LIPID PANEL 2019-03-08 08:06:00 Test Item CHOLESTEROL, TOTAL; Normal (test code = 2093-3) 111 mg/dl <200 N HDL CHOLESTEROL; Below Low Threshold (test code = 2085-9) 37 mg/dl >40 TRIGLYCERIDES; Normal (test code = 2571-8) 149 mg/dl <150 N LDL-CHOLESTEROL; Normal (test code = 71183-0) 51 {MG/DL GREGG} N Reference range: <100 Desirable range <100 mg/dL for primary prevention; <70 mg/dL for patients with CHD or diabetic patients with > or = 2 CHD risk factors. LDL-C is now calculated using the Avila-Underwood calculation, which is a validated novel method providing better accuracy than the Friedewald equation in the estimation of LDL-C. Avila ZARAGOZA et al. DIANELYS. 2013;310(19): 0650-9923 (http ://education.[employer]/faq/JUZ497) CHOL/HDLC RATIO (test code = CHOL/HDLC RATIO) 3.0 {CALC} <5.0 N NON HDL CHOLESTEROL (test code = NON HDL CHOLESTEROL) 74 {MG/DL CA L} <130 N For patients with diabetes plus 1 major ASCVD risk factor, treating to a non-HDL-C goal of <100 mg/dL (LDL-C of <70 mg/dL) is considered a therapeutic option. [facility]] CMP [id number] 08:06:00* Test Item Value Reference Range Interpretation Comments GLUCOSE; Normal (test code = 1547-9) 98 mg/dl 65-99 N Fasting reference interval UREA NITROGEN (BUN) (test code = UREA NITROGEN (BUN)) 21 mg/dl 7-25 N CREATININE (test code = CREATININE) 1.25 mg/dl 0.70-1.25 N For patients >49 years of age, the reference limitfor Creatinine is approximately 13% higher for peopleidentified as -Trinid[place]. eGFR NON- (test code = eGFR NON-JASMIN N TRISTANIAN) 59 {ML/MIN/1.7} > OR = 60 eGFR [...] N BILIRUBIN, TOTAL; Normal (test code = 52877-4) 1.2 mg/dl 0.2-1.2 N ALKALINE PHSPHATASE (test code = ALKALINE PHSPHATASE) 58 u/l 40-115 N AST; Normal (test code = 1916-6) 12 u/l 10-35 N ALT; Normal (test code = 1742-6) 15 u/l 9-46 N [facility]] CBC (INCLUDES DIFF/PLT)2019-03-08 08:06:00* Test Item Value Reference Range Interpretation Comments WHITE BLOOD CELL COUNT (test code = WHITE BLOOD CELL COUNT) 8.6 {Thousand/u} 3.8-10.8 N RED BLOOD CELL COUNT (test code = RED BLOOD CELL COUNT) 5.65 {Million/uL} 4.20-5.80 N HEMAGLOBIN; Above High Threshold (test code = 43635-9) 18.4 g/dl 13.2-17.1 HEMATOCRIT; Above High Threshold (test code = 4544-3) 51.8 % 38.5-50.0 MCV; Normal (test code = 787-2) 91.7 fL 80.0-100.0 N MCHC; Normal (test code = 06224-4) 35.5 g/dl 32.0-36.0 N RDW; Normal (test code = 788-0) 12.1 % 11.0-15.0 N PLATELET COUNT; Normal (test code = 777-3) 175 {Thousand/u} 140-400 N MPV; Normal (test code = 33372-0) 11.2 fL 7.5-12.5 N ABSOLUTE NEUTROPHILS (test code = ABSOLUTE NEUTROPHILS) 6330 {cells/uL} 4355-2952 N ABSOLUTE LYMPHOCYTES (test code = ABSOLUTE [...] % N MONOCYTES; Normal (test code = 09504-7) 7.9 % N EOSINOPHILS; Normal (test code = 88914-2) 2.3 % N BASOPHILS; Normal (test code = 58817-4) 0.5 % N [facility]] TSH, 3RD [id number] 08:06:00* Test Item Value Reference Range Interpretation Comments TSH; Normal (test code = 54280-0) 0.84 {MIU/L} 0.40-4.50 N [facility]] HEMOGLOBIN [id number] 08:06:00* Test Item Value Reference Range Interpretation [...] diagnosis of diabetes in children. According to [place] [employer] (ADA)guidelines, hemoglobin A1c <7.0% represents optimalcontrol in non- diabetic patients. Differentmetrics may apply to specific patient populations. Standards of Medical Care in Diabetes(ADA). [facility]
--- NOTE | 2019-11-15 13:40 | NUR ---
RECEIVED PATIENT FROM ER. PATIENT A/O X3, EVEN RESPIRATIONS ON RA. LUNG SOUNDS CLEAR. TELE #7 SR. RIGHT AC 20 GAUGE IV WITH IVF INFUSING. LEFT HAND 20 GAUGE IV SL. PATIENT RATES PAIN 3/10 TO ABDOMEN. CONSULT CALLED FOR DR. STODDARD. ORIENTED PATIENT TO ROOM AND CALL LIGHT. CALL LIGHT IN REACH WILL CONTINUE TO MONITOR.
[2019-11-15 14:16] VITALS: BP 132/78
[2019-11-15 14:20] VITALS: BP 132/78
[2019-11-15] MEDS: PIPER-TAZ 3.375 GM / NS 50ML IV SCH ×2 (14:53→21:28)
[2019-11-15] MEDS: METRONIDAZOLE 500MG/NS 100ML IV SCH ×2 (15:35→21:03)
[2019-11-15 16:52] VITALS: BP 120/61
[2019-11-15 18:20] LABS: CREATINE KINASE MB 0.7 ng/mL (0-5.0)
--- NOTE | 2019-11-15 18:22 | Consultation ---
DATE OF CONSULTATION: 11/15/2019 CHIEF COMPLAINT: Abdominal pain. HISTORY OF PRESENT ILLNESS: The patient is a 69-year-old male with a 3-day history of pain in the epigastric area with anorexia and constipations. He also admits to nausea and vomiting with oral intake. No fever or chills. No prior episodes. PAST MEDICAL HISTORY: Positive for coronary artery disease, cholesterol, and hypertension. PAST SURGICAL HISTORY: Positive for coronary artery bypass grafting. ALLERGIES: HE HAS NO DRUG ALLERGIES. SOCIAL HABITS: He does not smoke or drink. REVIEW OF SYSTEMS: No chest pain, shortness of breath, cough, or fevers. PHYSICAL EXAMINATION: VITAL SIGNS: Stable, afebrile. He is awake, alert, in moderate discomfort. HEENT: Sclerae nonicteric. NECK: Supple. LUNGS: Clear. HEART: Regular rate and rhythm. ABDOMEN: Soft with mild guarding in the right upper quadrant and epigastrium with no rebound. EXTREMITIES: No cyanosis or edema. LABORATORY DATA: White cell count 10.4, hemoglobin of 18, platelet count 205, creatinine 1.3. Liver function tests within normal limits with bilirubin of 1.5. INR of 0.9. Abdominal CT show gallstone without inflammation. There is mild wall thickening of the colon, possible inflammation colitis. ASSESSMENT: Abdominal pain with vomiting in patients with radiographic finding of colitis and cholelithiasis. PLAN: Continue IV antibiotics. Clear liquid diet. We will do a HIDA scan to rule out cholecystitis. . MD JORGITO Lucas/[facility] /[id number]
[2019-11-15] MEDS: AMLODIPINE BESYLATE 10 MG TAB PO SCH (18:30)
--- NOTE | 2019-11-15 20:00 | NUR ---
RECEIVED PT IN BED AOX3 ,RESPIRATIONS ARE EVEN AND UNLABORED .TELE # 7 SHOWS SR ,CALL LIGHT WITH IN REACH ,CONTINUE TO MONITOR
[2019-11-15 20:16] VITALS: BP 120/61
[2019-11-15 20:23] VITALS: BP 118/79
[2019-11-15] MEDS: ACETAMINOPHEN 325 MG TAB PO PRN (22:13)
[2019-11-15 23:28] VITALS: BP 121/65
[2019-11-16] MEDS: PIPER-TAZ 3.375 GM / NS 50ML IV SCH ×2 (03:34→09:46)
[2019-11-16] MEDS: METRONIDAZOLE 500MG/NS 100ML IV SCH ×4 (03:35→20:50)
[2019-11-16 04:49] VITALS: BP 120/70
--- NOTE | 2019-11-16 05:15 | NUR ---
PT RESTED DURING THE NIGHT ,PT IS NPO FOR HIDAL SCAN .CALL LIGHT WITH IN REACH CONTINUE TO MONITOR
[2019-11-16 06:04] LABS: BASOPHILS % 0.5 % (0.0-1.0); EOSINOPHILS # (AUTO) 0.1 (0.0-0.4); EOSINOPHILS % 1.2 % (0.0-6.0); HEMATOCRIT 45.1 % (38.2-49.6); HEMOGLOBIN 15.6 g/dL (14.0-18.0); LYMPHOCYTES # (AUTO) 1.3 (1.0-3.2); LYMPHOCYTES % 19.7 % (18.0-39.1); MEAN CORPUSCULAR HEMOGLOBIN 33.3 pg (28-32); MEAN CORPUSCULAR HGB CONC 34.6 g/dL (31-35); MEAN CORPUSCULAR VOLUME 96.2 fL (81-99); MONOCYTES # (AUTO) 0.6 (0.2-0.8); NEUTROPHILS # (AUTO) 4.6 (2.1-6.9); NEUTROPHILS % 69.1 % (38.7-80.0); PLATELET COUNT 123 x10e3/uL (140-360); RED BLOOD COUNT 4.69 x10e6/uL (4.3-5.7); RED CELL DISTRIBUTION WIDTH 12.6 % (11.7-14.4)
[2019-11-16 06:20] LABS: ALBUMIN 3.7 g/dL (3.5-5.0); ALBUMIN/GLOBULIN RATIO 1.5 (0.8-2.0); ANION GAP 14.7 mmol/L (8-16); CALCIUM 8.5 mg/dL (8.4-10.2); CREATININE, SERUM 1.26 mg/dL (0.72-1.25); POTASSIUM 3.7 mmol/L (3.5-5.1)
[2019-11-16 06:58] LABS: CREATINE KINASE MB 0.6 ng/mL (0-5.0)
--- NOTE | 2019-11-16 07:00 | NUR ---
BEDSIDE SHIFT REPORT RECEIVED FROM APPLE THINNER RN. PT DENIES NEEDS AT THIS TIME.
--- NOTE | 2019-11-16 07:13 | NUR ---
BEDSIDE REPORT GIVEN TO THE ONCOMING NURSE
[2019-11-16 08:45] VITALS: BP 137/67
[2019-11-16 09:00] VITALS: BP 137/67
[2019-11-16 09:07] LABS: PLATELET ESTIMATE ADEQUATE; PLATELET MORPHOLOGY COMMENT FEW LARGE; RBC MORPHOLOGY COMMENT NORMAL
[2019-11-16] MEDS: AMLODIPINE BESYLATE 10 MG TAB PO SCH (09:46)
[2019-11-16 13:00] VITALS: BP 168/86
--- NOTE | 2019-11-16 13:08 | Diagnostic Imaging Report ---
Hepatobiliary Scan with Gallbladder Ejection Fraction Reason for exam: Gallstones; epigastric pain Report: Following intravenous administration of 6 millicuries of Tc-99m mebrofenin, dynamic images of the abdomen in the anterior projection were obtained through 60 minutes. Sincalide (CCK analog) 1.5 micrograms was administered intravenously over 30 minutes with additional imaging for determination of gallbladder ejection fraction. Perfusion to the liver is normal. Extraction of tracer from the blood pool by the liver parenchyma is normal. Tracer is seen promptly within the biliary tract. The gallbladder begins to fill by 10 minutes post-injection of tracer and fills adequately. Tracer is seen in the small bowel by 14 minutes. The gallbladder ejection fraction with administration of sincalide is 72% (normal greater than 40%). Impression: 1. Filling of the gallbladder excludes the diagnosis of acute cystic duct obstruction/acute cholecystitis. 2. Normal gallbladder ejection fraction of 72% does not support the clinical diagnosis of chronic cholecystitis/gallbladder dyskinesia. Signed by: Dr. Prema Shah M.D. on 11/16/2019 1:05 PM
[2019-11-16] MEDS ORDERED: SODIUM CHLORIDE 0.9% 1000ML 2,000 ML ONE (13:25)
[2019-11-16] MEDS: CEFTRIAXONE SOD 1 GM/NS 50 ML 50 ML IV SCH (13:55)
[2019-11-16] MEDS ORDERED: SODIUM CHLORIDE 0.9% 250ML 250 ML ONE (15:48)
[2019-11-16 16:36] VITALS: BP 137/73
[2019-11-16] MEDS: ACETAMINOPHEN 325 MG TAB PO PRN (18:42)
--- NOTE | 2019-11-16 19:29 | NUR ---
RECEIVED PT IN BED AOX 3 .RESPIRATIONS ARE EVEN AND UNLABORED ,CALL LIGHT WITH IN REACH .CONTINUE TO MONITOR
[2019-11-16 20:01] VITALS: BP 137/73
[2019-11-17] VITALS (8 sets, daily range): BP systolic 119–146; BP diastolic 65–84
[2019-11-17] MEDS: CEFTRIAXONE SOD 1 GM/NS 50 ML 50 ML IV SCH ×2 (01:30→14:21)
[2019-11-17] MEDS: ONDANSETRON HCL INJ 2MG/ML 2ML 2 MG/ML VIAL IV PRN ×2 (02:46→07:11)
[2019-11-17] MEDS: ACETAMINOPHEN 325 MG TAB PO PRN (02:46)
[2019-11-17] MEDS: METRONIDAZOLE 500MG/NS 100ML IV SCH ×4 (03:00→21:40)
--- NOTE | 2019-11-17 05:37 | NUR ---
PT VOMITED X1 AND GIVEN ZOFRAN ,CONTINUE TO MONITOR ,CALL LIGHT WITH IN REACH
[2019-11-17 05:56] LABS: BASOPHILS % 0.4 % (0.0-1.0); EOSINOPHILS % 0.1 % (0.0-6.0); HEMATOCRIT 47.4 % (38.2-49.6); HEMOGLOBIN 16.1 g/dL (14.0-18.0); LYMPHOCYTES # (AUTO) 0.6 (1.0-3.2); LYMPHOCYTES % 7.9 % (18.0-39.1); MEAN CORPUSCULAR HEMOGLOBIN 31.6 pg (28-32); MEAN CORPUSCULAR VOLUME 92.9 fL (81-99); MONOCYTES # (AUTO) 0.5 (0.2-0.8); NEUTROPHILS # (AUTO) 6.7 (2.1-6.9); PLATELET COUNT 151 x10e3/uL (140-360); RED CELL DISTRIBUTION WIDTH 12.1 % (11.7-14.4)
[2019-11-17 06:11] LABS: ANION GAP 16.4 mmol/L (8-16); CALCIUM 8.6 mg/dL (8.4-10.2); CREATININE, SERUM 1.2 mg/dL (0.72-1.25); POTASSIUM 3.4 mmol/L (3.5-5.1)
[2019-11-17] MEDS ORDERED: SODIUM CHLORIDE 0.9% 1000ML 1,000 ML IV SCH (06:15)
[2019-11-17] MEDS ORDERED: BISACODYL 10 MG SUPP PR PRN (06:30)
[2019-11-17] MEDS ORDERED: HYDRALAZINE HCL 20 MG/ML VIAL IV PRN (06:30)
--- NOTE | 2019-11-17 07:16 | NUR ---
BEDSIDE REPORT GIVEN TO THE ONCOMING NURSE
[2019-11-17] MEDS ORDERED: CLOPIDOGREL75 MG PO (07:25)
[2019-11-17] MEDS ORDERED: ATORVASTATIN CA40 MG PO (07:25)
[2019-11-17] MEDS ORDERED: METOPROLOL TART50 MG PO (07:25)
[2019-11-17] MEDS ORDERED: LOSARTAN POTAS100 MG PO (07:26)
[2019-11-17] MEDS ORDERED: ASPIRIN EC81 MG PO (07:26)
[2019-11-17] MEDS ORDERED: HYDROCHLOROTHIA25 MG (07:27)
[2019-11-17] MEDS: AMLODIPINE BESYLATE 10 MG TAB PO SCH (09:31)
[2019-11-18] VITALS (8 sets, daily range): BP systolic 120–136; BP diastolic 59–88
[2019-11-18] MEDS: ACETAMINOPHEN 325 MG TAB PO PRN ×2 (00:37→18:22)
[2019-11-18] MEDS: CEFTRIAXONE SOD 1 GM/NS 50 ML 50 ML IV SCH ×2 (00:54→13:05)
[2019-11-18] MEDS: METRONIDAZOLE 500MG/NS 100ML IV SCH ×4 (03:13→20:59)
[2019-11-18] MEDS: ONDANSETRON HCL INJ 2MG/ML 2ML 2 MG/ML VIAL IV PRN (03:13)
[2019-11-18 05:34] LABS: BASOPHILS % 0.4 % (0.0-1.0); EOSINOPHILS % 0.3 % (0.0-6.0); HEMATOCRIT 46.6 % (38.2-49.6); HEMOGLOBIN 15.9 g/dL (14.0-18.0); LYMPHOCYTES # (AUTO) 0.9 (1.0-3.2); LYMPHOCYTES % 9.9 % (18.0-39.1); MEAN CORPUSCULAR HEMOGLOBIN 31.5 pg (28-32); MEAN CORPUSCULAR HGB CONC 34.1 g/dL (31-35); MEAN CORPUSCULAR VOLUME 92.5 fL (81-99); MONOCYTES # (AUTO) 0.7 (0.2-0.8); MONOCYTES % 7.9 % (4.4-11.3); NEUTROPHILS # (AUTO) 7.4 (2.1-6.9); NEUTROPHILS % 80.9 % (38.7-80.0); PLATELET COUNT 144 x10e3/uL (140-360); RED BLOOD COUNT 5.04 x10e6/uL (4.3-5.7); RED CELL DISTRIBUTION WIDTH 12.2 % (11.7-14.4)
[2019-11-18 06:04] LABS: ALANINE AMINOTRANSFERASE 10 IU/L (0-55); ALBUMIN 3.8 g/dL (3.5-5.0); ALBUMIN/GLOBULIN RATIO 1.4 (0.8-2.0); ALKALINE PHOSPHATASE 42 IU/L (40-150); ANION GAP 17.4 mmol/L (8-16); BLOOD UREA NITROGEN 15 mg/dL (7-26); BUN/CREATININE RATIO 13 (6-25); CALCIUM 8.3 mg/dL (8.4-10.2); CARBON DIOXIDE 18 mmol/L (22-29); CHLORIDE 110 mmol/L (98-107); CREATININE, SERUM 1.19 mg/dL (0.72-1.25); EST GLOMERULAR FILTRATION RATE > 60 ML/MIN (60-); GLUCOSE 100 mg/dL (74-118); MAGNESIUM 1.9 MG/DL (1.3-2.1); POTASSIUM 3.4 mmol/L (3.5-5.1); SODIUM 142 mmol/L (136-145)
[2019-11-18] MEDS ORDERED: ACETAMINOPHEN/CODEINE 300MG - 30MG TAB PO PRN (10:15)
[2019-11-18] MEDS ORDERED: POTASSIUM CHLORIDE 20 MEQ TAB CR PO ONE (10:30)
[2019-11-18] MEDS: AMLODIPINE BESYLATE 10 MG TAB PO SCH (10:32)
--- NOTE | 2019-11-18 10:55 | NUR ---
Called and spoke to Dr. Jarad Bazzi on [phone] regarding new consult for Colitis. He is aware and will come to see the patient.
[2019-11-18] MEDS ORDERED: ASPIRIN 81 MG CHEW TAB PO ONE (12:15)
[2019-11-18] MEDS ORDERED: CLOPIDOGREL BISULFATE 75 MG TAB PO ONE (12:15)
[2019-11-18] MEDS ORDERED: MORPHINE SULFATE 2 MG/ML SYR 1ML IV PRN (12:30)
--- NOTE | 2019-11-18 19:15 | NUR ---
PATIENT RECEIVED AT BEDSIDE REPORT. PATIENT IS RESTING IN BED, AAOX3. RESP EVEN AND UNLABORED. NO ACUTE DISTRESS NOTED. TELE IN PLACE. PATIENT DENIES OF ANY PAIN OR DISCOMFORT AT THIS TIME. CALL LIGHT WITHIN REACH. INSTRUCT PATIENT TO CALL FOR ANY ASSISTANCE. BED LOW/LOCKED. SIDE RAIL UP X2. CONTINUE TO MONITOR CLOSELY
[2019-11-18] MEDS: ATORVASTATIN 40 MG TAB PO SCH (20:59)
[2019-11-18] MEDS ORDERED: NON-FORMULARY MEDICATION (Atorvastatin Calcium 40 MG) PO SCH (21:00)
[2019-11-19] VITALS (9 sets, daily range): BP systolic 118–153; BP diastolic 58–84
[2019-11-19] MEDS: ONDANSETRON HCL INJ 2MG/ML 2ML 2 MG/ML VIAL IV PRN (00:33)
[2019-11-19] MEDS: CEFTRIAXONE SOD 1 GM/NS 50 ML 50 ML IV SCH ×2 (01:08→15:30)
--- NOTE | 2019-11-19 01:30 | NUR ---
OBTAINED CONSENT FORM FOR EGD
[2019-11-19] MEDS ORDERED: DONNATAL/LIDOCAINE/MAALOX 30 ML SUSP PO ONE (02:00)
--- NOTE | 2019-11-19 02:25 | NUR ---
IG COCKTAIL GIVEN WILLY SALAZAR. PATIENT TOLERATED WELL. PATIENT STATED LESS PAIN TO LUQ
[2019-11-19] MEDS: METRONIDAZOLE 500MG/NS 100ML IV SCH ×4 (02:58→20:55)
[2019-11-19 05:38] LABS: BASOPHILS % 0.6 % (0.0-1.0); EOSINOPHILS # (AUTO) 0.1 (0.0-0.4); EOSINOPHILS % 1.7 % (0.0-6.0); HEMATOCRIT 43.2 % (38.2-49.6); HEMOGLOBIN 15.3 g/dL (14.0-18.0); LYMPHOCYTES # (AUTO) 1.5 (1.0-3.2); LYMPHOCYTES % 27.9 % (18.0-39.1); MEAN CORPUSCULAR HEMOGLOBIN 33.6 pg (28-32); MEAN CORPUSCULAR HGB CONC 35.4 g/dL (31-35); MEAN CORPUSCULAR VOLUME 94.7 fL (81-99); MONOCYTES # (AUTO) 0.4 (0.2-0.8); MONOCYTES % 8.4 % (4.4-11.3); NEUTROPHILS # (AUTO) 3.2 (2.1-6.9); NEUTROPHILS % 60.8 % (38.7-80.0); PLATELET COUNT 140 x10e3/uL (140-360); RED BLOOD COUNT 4.56 x10e6/uL (4.3-5.7); RED CELL DISTRIBUTION WIDTH 12.4 % (11.7-14.4)
[2019-11-19 06:02] LABS: ALANINE AMINOTRANSFERASE 8 IU/L (0-55); ALBUMIN 3.5 g/dL (3.5-5.0); ALBUMIN/GLOBULIN RATIO 1.5 (0.8-2.0); ALKALINE PHOSPHATASE 34 IU/L (40-150); ANION GAP 14.3 mmol/L (8-16); BLOOD UREA NITROGEN 11 mg/dL (7-26); BUN/CREATININE RATIO 13 (6-25); CALCIUM 8.1 mg/dL (8.4-10.2); CARBON DIOXIDE 21 mmol/L (22-29); CHLORIDE 111 mmol/L (98-107); CREATININE, SERUM 0.88 mg/dL (0.72-1.25); EST GLOMERULAR FILTRATION RATE > 60 ML/MIN (60-); GLUCOSE 92 mg/dL (74-118); POTASSIUM 3.3 mmol/L (3.5-5.1); SODIUM 143 mmol/L (136-145)
--- NOTE | 2019-11-19 07:18 | NUR ---
PAGED AND NOTIFIED THE POTASSIUM LEVEL 3.3 TO LOREN JONES ,NO NEW ORDERS
--- NOTE | 2019-11-19 07:46 | NUR ---
RCD PT AT BED PT IS ALERT AND ORIENTED RESTING ON BED IV PATENT BY SALINE FLUSH BED PT NPO FOR PROCEDURE LOW AND LOCKED CALL LIGHT IN REACH
[2019-11-19] MEDS ORDERED: POTASSIUM CHLORIDE 20MEQ/100ML 100 ML IV ONE (08:15)
[2019-11-19] MEDS ORDERED: SODIUM CHLORIDE 0.9% 1000ML 1,000 ML IV SCH (08:15)
[2019-11-19] MEDS: AMLODIPINE BESYLATE 10 MG TAB PO SCH (09:00)
[2019-11-19] MEDS: CLOPIDOGREL BISULFATE 75 MG TAB PO SCH (09:00)
[2019-11-19] MEDS: ASPIRIN 81 MG ENTERIC COATED PO SCH (09:00)
--- NOTE | 2019-11-19 15:30 | NUR ---
PT BACK AFTER PROCEDURE PT IS ALERT AND ORIENTED VITALS CHECKED PT RESTING ON BED BED LOW AND LOCKED CALL LIGHT IN REACH
--- NOTE | 2019-11-19 15:51 | Operative Report ---
DATE OF PROCEDURE: 11/19/2019 SURGEON: Jarad Bazzi MD PROCEDURE: EGD with biopsies note. INDICATIONS FOR EGD: Upper abdominal pain, nausea, vomiting, heartburn indigestion. MEDICATIONS: The patient was done under MAC, please see anesthesiologist's note. PROCEDURE IN DETAIL: With the patient in the left lateral decubitus position, a flexible fiberoptic Olympus gastroscope was introduced into the esophagus under direct visualization without any difficulty. There was some patchy erythema noted in distal esophagus. The scope was then advanced with ease into the stomach, mucosa overlying the antrum and the body revealed some patchy erythema and low-grade to moderate edema, and biopsies were obtained, sent to stain for H. pylori. Pylorus was of normal contour and shape, it was intubated with ease and the scope was advanced all the way to the second portion of the duodenum. Biopsies were obtained from the proximal second portion and the duodenal bulb to rule out sprue. The scope was then withdrawn back into the stomach and retroflexed, and mucosa overlying the fundus and cardia appeared to be within normal limits. The scope was then straightened out, it was subsequently withdrawn. The patient tolerated the procedure well. IMPRESSION: 1. Distal esophagitis, mild. 2. Gastritis, biopsied, biopsies sent to stain for H. pylori. 3. Rule out sprue. PLAN: 1. Follow up histology. 2. Initiate Protonix 40 mg one p.o. a.c. b.i.d. Jarad Bazzi MD [facility] [place]/[facility] /[id number] cc: Ed Liz MD
[2019-11-19] MEDS: ACETAMINOPHEN 325 MG TAB PO PRN (15:59)
[2019-11-19] MEDS: PANTOPRAZOLE 40 MG 10ML VIAL IV SCH (16:00)
--- NOTE | 2019-11-19 18:46 | NUR ---
PT RESTING ON BED BED SIDE REPORT GIVEN TO ONCOMING NURSE
[2019-11-19] MEDS: ATORVASTATIN 40 MG TAB PO SCH (20:55)
[2019-11-19] MEDS ORDERED: PROPOFOL IV EMULSION 10 MG/ML 20 ML VIAL ONE (21:35)
[2019-11-19] MEDS ORDERED: LIDOCAINE HCL 2% LOCAL INJ 5 ML SDV VIAL INJ ONE (21:35)
[2019-11-19] MEDS ORDERED: MIDAZOLAM HCL 2 MG/2 ML VIAL ONE (21:46)
[2019-11-19] MEDS ORDERED: FENTANYL CITRATE/PF 100MCG/2 ML INJ ONE (21:46)
[2019-11-20] VITALS: BP 116/68
[2019-11-20] MEDS: CEFTRIAXONE SOD 1 GM/NS 50 ML 50 ML IV SCH ×2 (01:50→13:30)
[2019-11-20] MEDS: PANTOPRAZOLE 40 MG 10ML VIAL IV SCH ×2 (03:14→15:51)
[2019-11-20] MEDS: METRONIDAZOLE 500MG/NS 100ML IV SCH ×3 (03:14→14:40)
[2019-11-20 04:00] VITALS: BP 132/63
[2019-11-20 05:21] LABS: BASOPHILS % 0.4 % (0.0-1.0); EOSINOPHILS # (AUTO) 0.1 (0.0-0.4); EOSINOPHILS % 2.3 % (0.0-6.0); HEMATOCRIT 45.8 % (38.2-49.6); HEMOGLOBIN 15.7 g/dL (14.0-18.0); LYMPHOCYTES # (AUTO) 1.3 (1.0-3.2); LYMPHOCYTES % 25.7 % (18.0-39.1); MEAN CORPUSCULAR HEMOGLOBIN 31.5 pg (28-32); MEAN CORPUSCULAR HGB CONC 34.3 g/dL (31-35); MEAN CORPUSCULAR VOLUME 91.8 fL (81-99); MONOCYTES # (AUTO) 0.4 (0.2-0.8); NEUTROPHILS # (AUTO) 3.3 (2.1-6.9); PLATELET COUNT 138 x10e3/uL (140-360); RED BLOOD COUNT 4.99 x10e6/uL (4.3-5.7); RED CELL DISTRIBUTION WIDTH 12.2 % (11.7-14.4)
[2019-11-20 05:57] LABS: ALANINE AMINOTRANSFERASE 10 IU/L (0-55); ALBUMIN 3.4 g/dL (3.5-5.0); ALBUMIN/GLOBULIN RATIO 1.5 (0.8-2.0); ALKALINE PHOSPHATASE 31 IU/L (40-150); ANION GAP 14.3 mmol/L (8-16); BLOOD UREA NITROGEN 11 mg/dL (7-26); BUN/CREATININE RATIO 13 (6-25); CALCIUM 7.9 mg/dL (8.4-10.2); CARBON DIOXIDE 19 mmol/L (22-29); CHLORIDE 109 mmol/L (98-107); CREATININE, SERUM 0.85 mg/dL (0.72-1.25); EST GLOMERULAR FILTRATION RATE > 60 ML/MIN (60-); GLUCOSE 85 mg/dL (74-118); MAGNESIUM 1.8 MG/DL (1.3-2.1); POTASSIUM 3.3 mmol/L (3.5-5.1); SODIUM 139 mmol/L (136-145)
--- NOTE | 2019-11-20 07:10 | NUR ---
RCD PT AT BED PT IS ALERT AND ORIENTED RESTING ON BED IV PATENT BY SALINE FLUSH BED LOW AND LOCKED CALL LIGHT IN REACH
[2019-11-20 08:37] VITALS: BP 138/85
[2019-11-20 08:47] VITALS: BP 138/85
[2019-11-20] MEDS ORDERED: PANTOPRAZOLE SO40 MG PO (08:56)
[2019-11-20] MEDS ORDERED: ZOFRAN4 MG PO (08:56)
[2019-11-20] MEDS: AMLODIPINE BESYLATE 10 MG TAB PO SCH (09:00)
[2019-11-20] MEDS: CLOPIDOGREL BISULFATE 75 MG TAB PO SCH (09:00)
[2019-11-20] MEDS: ASPIRIN 81 MG ENTERIC COATED PO SCH (09:00)
[2019-11-20] MEDS ORDERED: CEFTIN PO (09:11)
[2019-11-20] MEDS ORDERED: METRONIDAZOLE500 MG PO (09:11)
--- NOTE | 2019-11-20 09:21 | NUR ---
IMM letter delivered and explained to pt. He verbalized understanding. Copy given to pt. Signed copy placed in chart.
[2019-11-20] MEDS ORDERED: POTASSIUM CHLORIDE 20 MEQ TAB CR PO ONE (09:55)
[2019-11-20 12:49] VITALS: BP 142/88
--- NOTE | 2019-11-20 15:45 | NUR ---
PT WENT HOME IN SAFE CONDITION WITH HIS DAUGHTER
--- NOTE | 2019-11-21 04:54 | Discharge Summary ---
ADMISSION DIAGNOSES: Cholecystitis, colitis, hypertension with CAD. DISCHARGE DIAGNOSES: Cholecystitis, colitis, hypertension with CAD plus distal esophagitis, gastritis, rule out COVID, rule out UTI, rule out gallbladder dyskinesia. HISTORY: Hypertension with CAD. PAST SURGICAL HISTORY: CABG. FAMILY HISTORY: Noncontributory. SOCIAL HISTORY: The patient says he used to smoke, but he quit. HOSPITAL COURSE: A 69-year-old male with upper abdominal pain and nausea and vomiting x2 days. He denies diarrhea and fever. He was constipated two days ago, did an enema, which resolved. On admission CT of the abdomen and pelvis showed diffuse mid wall thickening of the colon likely infectious or inflammatory, cholelithiasis with no evidence of gross cholecystitis, hepatic steatosis with no focal lesion. Chest x-ray showed cardiomegaly with mild pulmonary edema. HIDA scan was negative for gallbladder dyskinesia as the EF was 72%. Urine culture was negative. Coronavirus was negative. Initially, it was assumed the patient was going to have the gallbladder removed, but after speaking with surgery he did not think that was the cause of the pain, so the patient was started on IV antibiotics for the possible colitis and GI was consulted. The patient had an EGD on 11/19/2019, which showed distal esophagitis and gastritis. He was started on Protonix b.i.d. The following day the patient is tolerating diet with minimal abdominal pain. He will discharge home with new prescriptions for Ceftin, Flagyl, Zofran and Protonix. He will follow up with primary care in 1 to 2 weeks and GI as discussed. At the time of discharge vital signs stable and patient afebrile. Dictated by Carmen Alfonso NP MD SHONNA Malhotra/MODL /[id number]
== END 2019-11-20 15:45 | disposition home or self-care (01) | DRG 445 ==
LOC: ER 09:30 → INTOOBSV 12:34 → ERHOLD 12:34 → MED/SURG 13:40 → OBSVTOIN 11-17 06:22
PROVIDERS: ADMIT Internal Medicine; ATTEND Internal Medicine
PROC: 0DB78ZX Excision of Stomach, Pylorus, Via Natural or Artificial Opening Endoscopic, Diagnostic (ICD-10-PCS; principal; 2019-11-19 14:30)
DX: K80.10 Calculus of gallbladder with chronic cholecystitis without obstruction (principal); N17.9 Acute kidney failure, unspecified; K52.9 Noninfective gastroenteritis and colitis, unspecified; Z11.59 Encounter for screening for other viral diseases; I25.10 Atherosclerotic heart disease of native coronary artery without angina pectoris; K20.9 Esophagitis, unspecified; I10 Essential (primary) hypertension; K29.70 Gastritis, unspecified, without bleeding; E66.9 Obesity, unspecified; Z68.30 Body mass index [BMI] 30.0-30.9, adult; Z95.1 Presence of aortocoronary bypass graft; Z87.891 Personal history of nicotine dependence
CPT/HCPCS: 36415; 43239; 71045; 74177; 78227; 80048; 80053; 81001; 82150; 82550; 82553; 83690; 83735; 84484; 85025; 85610; 85730; 87086; 88305; 88312; 93005; 99284; A9537; G0378; J0696; J2001; J2250; J2270; J2405; J2543; J3010; J3480; J7030; J7050; Q9967

== ENCOUNTER → 2023-12-24 | Day surgery (SDC) | payer MEDICARE ==
[2023-12-20 08:55] LABS: BASOPHILS # (AUTO) 0.1 (0.0-0.1); BASOPHILS % 0.6 % (0.0-1.0); EOSINOPHILS # (AUTO) 0.3 (0.0-0.4); HEMATOCRIT 49.5 % (38.2-49.6); HEMOGLOBIN 16.5 g/dL (14.0-18.0); LYMPHOCYTES # (AUTO) 2.2 (1.0-3.2); LYMPHOCYTES % 25.5 % (18.0-39.1); MEAN CORPUSCULAR HEMOGLOBIN 32.8 pg (28-32); MEAN CORPUSCULAR HGB CONC 33.3 g/dL (31-35); MEAN CORPUSCULAR VOLUME 98.4 fL (81-99); MONOCYTES # (AUTO) 0.7 (0.2-0.8); MONOCYTES % 7.7 % (4.4-11.3); NEUTROPHILS # (AUTO) 5.3 (2.1-6.9); NEUTROPHILS % 62.6 % (38.7-80.0); PLATELET COUNT 169 x10e3/uL (140-360); RED BLOOD COUNT 5.03 x10e6/uL (4.3-5.7); RED CELL DISTRIBUTION WIDTH 12.8 % (11.7-14.4); WHITE BLOOD COUNT 8.43 x10e3/uL (4.8-10.8)
[2023-12-20 10:09] LABS: ALBUMIN 4.1 g/dL (3.5-5.0); ALBUMIN/GLOBULIN RATIO 1.2 (0.8-2.0); ANION GAP 15.9 mmol/L (8-16); BILIRUBIN,TOTAL 1.2 mg/dL (0.2-1.2); CREATININE, SERUM 1.79 mg/dL (0.72-1.25); POTASSIUM 3.9 mmol/L (3.5-5.1); TOTAL PROTEIN 7.6 g/dL (6.5-8.1)
[~2023-12-24] MED LIST: ACETAMINOPHEN 1000 MG/100 ML IV ONE; ASPIRIN EC81 MG PO; ATORVASTATIN CA40 MG PO; BUPIVACAINE 0.25% 30ML SDV ONE; CEFTIN PO; CLOPIDOGREL75 MG PO; DEXAMETHASONE SOD PHOS INJ 4 MG/ML SDV ONE; FENTANYL CITRATE/PF 100MCG/2 ML INJ ONE; HYDROCHLOROTHIA25 MG; LACTATED RINGER'S 1,000 ML ONE; LIDOCAINE HCL 2% LOCAL INJ 5 ML SDV VIAL INJ ONE; LOSARTAN POTAS100 MG PO; METOPROLOL TART50 MG PO; METRONIDAZOLE500 MG PO; ONDANSETRON HCL INJ 2MG/ML 2ML 2 MG/ML VIAL ONE; PANTOPRAZOLE SO40 MG PO; PROPOFOL IV EMULSION 10 MG/ML 20 ML VIAL ONE; ROCURONIUM BROMIDE 10 MG/ML 5ML VIAL IV ONE; SEVOFLURANE INHAL SOLN 250 ML PEN BTL ONE; SUGAMMADEX SODIUM 200 MG/2 ML VIAL IV ONE; ZOFRAN4 MG PO
[2023-12-24 14:35] VITALS: BP 123/65; PULSE 59; RESP 15; O2SAT 95
== END | disposition home or self-care (01) ==
LOC: OR 08:11
PROVIDERS: ATTEND Surgery
DX: K80.10 Calculus of gallbladder with chronic cholecystitis without obstruction (principal); K82.8 Other specified diseases of gallbladder; I25.810 Atherosclerosis of coronary artery bypass graft(s) without angina pectoris; I10 Essential (primary) hypertension; E78.5 Hyperlipidemia, unspecified; K21.9 Gastro-esophageal reflux disease without esophagitis; G89.29 Other chronic pain; Z01.812 Encounter for preprocedural laboratory examination; Z79.02 Long term (current) use of antithrombotics/antiplatelets; Z79.82 Long term (current) use of aspirin; Z79.899 Other long term (current) drug therapy; Z95.1 Presence of aortocoronary bypass graft; Z87.891 Personal history of nicotine dependence
CPT/HCPCS: 36415; 47562; 80053; 85025; 88304; C1766; J0131; J1100; J2003; J2405; J2704; J3010; J7121